=== PATIENT | female | born 1980 | race Caucasian/White ===

== ENCOUNTER 2019-04-03 15:03 | Inpatient (IN) ==
[2019-04-03] MEDS ORDERED: DIAZEPAM 5 MG/ML INJ 10ML VIAL IV STA ×2 (16:18→19:28)
[2019-04-03] MEDS ORDERED: ASCORBIC ACID 1,500 MG, THIAMINE HCL 100 MG in 0.9 % SODIUM CHLORIDE 100 ML IV STA (16:18)
[2019-04-03] MEDS ORDERED: FOLIC ACID 1 MG TAB PO STA (16:18)
--- NOTE | 2019-04-03 17:01 | XRay Report ---
XR chest 1V portable CLINICAL HISTORY: weakness COMPARISON STUDY: No previous studies for comparison. FINDINGS: Lung volumes are normal. Lungs are clear. There is no pneumothorax or pleural effusion. Car diac size is normal. Mediastinal contours are normal. There are suspected bilateral breast implants. There is an equivocal minimally displaced acute lateral right rib fracture. IMPRESSION: No pneumothorax. Possible acute minimally displaced lateral right rib fracture. Electronically signed by: Pedro Lucero M.D. 04/03/2019 5:00 PM
[2019-04-03 17:11] LABS: INR 1.7 (0.9-1.1); Prothrombin Time 16.7 Seconds (9.0-12.0)
[2019-04-03 17:15] LABS: Appearance Urine Clear (Clear); Blood Urine 1+ (Negative); Color Urine Amber; Glucose Urine UA Trace (Negative); Ketones Urine 2+ (Negative); Leukocyte Esterase Urine Negative (Negative); Nitrite Urine Negative (Negative); Specific Gravity Urine 1.015 (1.000-1.030); Urobilinogen Urine Positive (Negative); pH Urine 8.5 (4.5-7.5)
[2019-04-03 17:25] LABS: Alanine Aminotransferase 47 U/L (12-78); Albumin Level 3.1 gm/dl (3.4-5.0); Aspartate Aminotransferase 185 U/L (15-37); BUN Creatinine Ratio 15.3 (10-20); Blood Urea Nitrogen 5 mg/dl (7-18); Calcium 7.8 mg/dl (8.5-10.1); Carbon Dioxide 22 mmol/L (21-32); Chloride 106 mmol/L (98-107); Creatinine Clr Calc Pharmacy 243.9 ml/min; Est GFR (African American) > 150.0; Est GFR (Non-African American) 141.8; Glucose 88 mg/dl (70-99); Magnesium 1.4 mg/dl (1.8-2.4); Potassium 3.5 mmol/L (3.5-5.1); Sodium 138 mmol/L (136-145)
[2019-04-03 17:35] LABS: Albumin Globulin Ratio 0.6 (0.9-2); Alkaline Phosphatase 77 U/L (45-117); Bilirubin,Total 6.8 mg/dl (0.2-1); Creatine Kinase 840 U/L (26-192); Phosphorus 2.8 mg/dl (2.5-4.9); Total Protein 8.1 gm/dl (6.4-8.2); Troponin I < 0.015 ng/ml (0-0.045)
[2019-04-03 17:40] LABS: Bilirubin Urine 2+ (Negative); Hematocrit (blood only) 28.8 % (37-47); Mean Corpuscular Hemoglobin 34.6 pg (25-34); Mean Corpuscular Hgb Conc 34.7 g/dL (32-36); Mean Corpuscular Volume 99.7 fL (80-100); Platelet Count 21 K/uL (130-400); RDW Coefficient of Variation 13.7 % (11.5-14.5); RDW Standard Deviation 49.6 fL (36.4-46.3); Red Blood Count 2.89 M/uL (4.2-5.4); White Blood Count 3.49 K/uL (4.8-10.8)
[2019-04-03 17:41] LABS: Basophils # (auto) 0.04 K/uL (0-0.2); Basophils % (auto) 1.1 %; Eosinophils # (auto) 0.04 K/uL (0-0.5); Eosinophils % (auto) 1.1 %; Ictotest Urine Positive (Negative); Lymphocytes # (auto) 0.66 K/uL (1.2-3.4); Lymphocytes % (auto) 18.9 %; Monocytes # (auto) 0.31 K/uL (0.11-0.59); Monocytes % (auto) 8.9 %; Neutrophils # (auto) 2.44 K/uL (1.4-6.5); Platelet Estimate Decreased (Normal); Protein Urine Negative (Negative)
[2019-04-03 17:55] LABS: Epithelial Cell Urine >30 /lpf (0-5); Renal Epithelial Cells Urine 0-5 /lpf (0-5)
[2019-04-03 17:56] LABS: RBC Urine 0-4 /hpf (0-4)
[2019-04-03 17:57] LABS: Bacteria Urine 2+ (Negative); Mucus Urine Present (None Prsent)
[2019-04-03] MEDS ORDERED: IOVERSOL 100ml IV PRN (18:12)
--- NOTE | 2019-04-03 18:23 | CT Scan Report ---
CT OF THE HEAD WITHOUT CONTRAST CLINICAL HISTORY: Fall. COMPARISON STUDY: No previous studies for comparison. TECHNIQUE: Helical axial images of the head were obtained without IV contrast. Automated exposure con trol was utilized for the study. A dose lowering technique was utilized adhering to the principles o f ALARA. FINDINGS: No acute intracranial hemorrhage, midline shift or mass effect is present. The ventricular system is unremarkable. The basilar cisterns are patent. No extra-axial collections are present. Ther e are no findings to suggest acute dural sinus thrombosis or acute territorial infarct. No significan t calvarial abnormalities are present. Visualized portions of the sinuses and mastoid air cells are c lear. IMPRESSION: 1. No acute intracranial findings. 2. No calvarial fracture. Electronically signed by: Pedro Lucero M.D. 04/03/2019 6:18 PM
--- NOTE | 2019-04-03 18:27 | CT Scan Report ---
CT OF THE CERVICAL SPINE WITHOUT CONTRAST CLINICAL HISTORY: Fall. COMPARISON STUDY: No previous studies for comparison. TECHNIQUE: Helical axial images of the cervical spine were obtained without IV contrast. Sagittal a nd coronal reconstructions were viewed. Automated exposure control was utilized for the study. A do se lowering technique was utilized adhering to the principles of ALARA. FINDINGS: Reversal of the normal cervical lordosis is noted. The craniocervical junction is intact. F acet joints are intact. There is no acute fracture. There is no prevertebral edema. Paravertebral sof t tissues are unremarkable by CT. IMPRESSION: No acute cervical spine fracture or subluxation. Electronically signed by: Pedro Lucero M.D. 04/03/2019 6:26 PM
--- NOTE | 2019-04-03 18:31 | CT Scan Report ---
CT chest w con CLINICAL HISTORY: 38 years-old Female presenting with fall, R chest wall bruising. TECHNIQUE: Multidetector CT imaging of the chest was performed after the administration of intravenou s contrast. IV contrast: 93 mL of Optiray 320. One or more dose lowering techniques were used consist ent with the principles of ALARA (as low as reasonably achievable), including automatic exposure cont rol, mA or kV adjustment to individual patient size, and/or use of iterative reconstruction. COMPARISON: Chest x-ray from earlier today. CT DOSE (mGy.cm): The estimated cumulative dose is 1855.98. FINDINGS: Signing Teacher topogram: Unremarkable. Soft tissues: Normal thyroid. Bilateral subglandular breast implants. Intracapsular rupture suspected on the right. There is also extracapsular rupture evident along the inferior aspect of the right dhruv ast implant. Surrounding infiltrative changes within the inferior right breast and skin thickening. N o focal hematoma is evident. No axillary, supraclavicular, mediastinal, or hilar lymphadenopathy. Nor mal aorta. Normal heart size. No pericardial or pleural effusion. Perisplenic, perigastric, gastroeso phageal, and periumbilical varices. Lungs and airways: No pneumothorax. Central airways patent. Pulmonary arteries are not significantly enlarged relative to adjacent bronchi. No interlobular septal thickening. Minimal dependent changes l ikely atelectasis. Musculoskeletal: Normal osseous structures. IMPRESSION: 1. Acute appearing right subglandular breast implant intracapsular and extracapsular rupture. 2. Right inferior breast contusion. No hematoma. 3. No other evidence of acute intrathoracic pathology. 4. Significant upper abdominal varices consistent with portal hypertension. Electronically signed by: Rubio Pacheco M.D. 04/03/2019 6:30 PM
--- NOTE | 2019-04-03 18:38 | CT Scan Report ---
CT OF THE ABDOMEN AND PELVIS WITH CONTRAST CLINICAL HISTORY: falls, liver disease COMPARISON STUDY: None. TECHNIQUE: Following IV administration of 93 mL of Optiray-320, axial images of the abdomen and pelvi s were obtained from the lung bases to the proximal femurs. Images were reviewed in the axial, sagitt al, and coronal planes. IV contrast was administered without complication. Automated exposure contro l was utilized for the study. A dose lowering technique was utilized adhering to the principles of A FAVIOLA. FINDINGS: Please note that the chest CT will be reported separately. No hemoperitoneum or pneumoperit oneum is noted. The liver is cirrhotic with nodularity of the liver surface. There is no evidence for traumatic injury to the liver, spleen, adrenal glands, kidneys or pancreas. Spleen is moderately enl arged. Extensive varices within the abdomen or pelvis are noted. There are gallstones within the gall bladder. There is mild gallbladder wall thickening with possible trace pericholecystic fluid. There i s no evidence for a bowel obstruction. Note is made of a 7.5 x 5.2 cm lobulated density within the le ft hemipelvis. This is adjacent to the uterus. This appears to be separate from the left ovary. No ac heraclio lumbar spine or pelvic fracture is identified. IMPRESSION: 1. No acute traumatic findings within the abdomen or pelvis. 2. Cirrhosis with sequela of portal hypertension including extensive varices formation and moderate s plenomegaly. 3. 7.5 x 5.2 cm lobulated density within the left hemipelvis which is adjacent to the uterus. This fa vors a uterine fibroid or adjacent fibroids. 4. Cholelithiasis with gallbladder wall thickening, a nonspecific finding in the setting of cirrhosis . Electronically signed by: Pedro Lucero M.D. 04/03/2019 6:37 PM
--- NOTE | 2019-04-03 19:49 | Emergency Department Note ---
Entered by Flaquita Ortiz acting as a scribe for History of Present Illness General Chief complaint: Abnormal Labs/Diagnostic Testing Stated complaint: DETOX REQUEST, ABNORMAL BLOOD WORK Source: patient History of Present Illness Provider complaint: Bruising Onset (ago): week(s) 1 Location: upper extremity Maximum Pain Intensity: 2 Relieved By: + none Exacerbated By: + movement Associated symptoms: + nausea/vomiting (Positive nausea. Negative vomiting.), + shortness of breath and + other (Hallucinations, difficulty swallowing, RUQ pain); no headaches and no seizure The patient is a 38 year old female who presents to the Emergency Room with complaints of upper extremity bruising that began a week ago after a fall. The patient reports she was drunk and fell down her basement stairs and hit the washing machine. The patient states she was admitted to [facility] rehab facility for alcohol abuse and had a fall yesterday and was determined to be a bleeding risk due to a low platelet count. The patient states the pain is exacerbated by movement and not relieved by anything. The patient reports experiencing nausea and shortness of breath but denies any vomiting. Additionally, she mentioned having experienced hallucinations while at rehab. The patient also reports having RUQ pain and a lump and difficulty swallowing. The patient denies any headaches or seizures. The patient mentioned that her last drink of alcohol was on Saturday. The patient states she has a history of hemochromatosis and cellulitis in an infected breast implant. Home Medications Home Medications Medication Instructions Recorded Confirmed Type No Known Home Medications 04/03/19 04/03/19 History Allergies Allergy/AdvReac Type Severity Reaction Status Date / Time cephalexin Allergy Swelling Verified 04/03/19 15:50 of Lip/Tongue/Throat Penicillins Allergy Hives Verified 04/03/19 15:50 Past Med/Surg History Medical History Cellulitis Hemochromatosis Family History Other No pertinent family history in first degree relatives Social History Preferred Language: Greenlandic Communication Ability: Effective Coupon Clerk Required: No Beliefs That Will Affect Care: None Current Living Situation: Rehab Current Living Situation Comment: [facility] Other Information That Helps Us Care for You: No Feels Safe at Home: Yes Safety Concerns: Feels Safe At This Time Smoking Status: Light tobacco smoker Tobacco Type: cigarettes ; Do You Dip or Chew Tobacco: No ; Second Hand Exposure: Yes (Home.) ; Tobacco Cessation Education Requested by Patient: No (Refuses.) Hx Alcohol Use: Yes Alcohol type: wine Hx Substance Use: Yes substance use type: marijuana Last Used Substance: Days (ago) Review of Systems See HPI for pertinent positives & negatives. and A total of 10 systems reviewed and were otherwise negative Physical Exam Vital Signs Vital Signs - 24 hr 04/03/19 15:07 04/03/19 16:43 04/03/19 16:54 Temperature 37.3 C Temperature Source Oral Sepsis Recent Fever Within 48 Hours No Sepsis New/Unexplained Change in Mental Status No Sepsis Action Taken by Nursing No Action Required Pulse Rate 104 H Pulse Rate [Left Finger] 96 H Pulse Rate from SpO2 Sensor Pulse Rhythm Regular Pulse Strength Normal Respiratory Rate 20 16 Respiratory Effort / Characteristics Non-Labored Spontaneous Respiratory Depth Normal Respiratory Pattern Regular Blood Pressure 128/79 Blood Pressure [Left Arm] 152/88 H Blood Pressure Mean 95 Blood Pressure Mean [Left Arm] 109 Blood Pressure Position Sitting Pulse Oximetry 98 98 Oxygen Delivery Method Room Air Room Air Room Air 04/03/19 17:50 04/03/19 18:39 04/03/19 19:00 Temperature Temperature Source Sepsis Recent Fever Within 48 Hours Sepsis New/Unexplained Change in Mental Status Sepsis Action Taken by Nursing Pulse Rate 88 Pulse Rate [Left Finger] 92 H 83 Pulse Rate from SpO2 Sensor 87 Pulse Rhythm Pulse Strength Respiratory Rate 18 16 22 Respiratory Effort / Characteristics Respiratory Depth Respiratory Pattern Blood Pressure 160/87 H Blood Pressure [Left Arm] 155/92 H 168/91 H Blood Pressure Mean 111 Blood Pressure Mean [Left Arm] 113 116 Blood Pressure Position Pulse Oximetry 98 98 98 Oxygen Delivery Method Room Air Room Air 04/03/19 19:30 04/03/19 20:00 04/03/19 20:30 Temperature Temperature Source Sepsis Recent Fever Within 48 Hours Sepsis New/Unexplained Change in Mental Status Sepsis Action Taken by Nursing Pulse Rate 88 88 97 H Pulse Rate [Left Finger] Pulse Rate from SpO2 Sensor 92 H Pulse Rhythm Pulse Strength Respiratory Rate 18 24 24 Respiratory Effort / Characteristics Respiratory Depth Respiratory Pattern Blood Pressure 139/84 153/97 H 147/87 H Blood Pressure [Left Arm] Blood Pressure Mean 102 115 107 Blood Pressure Mean [Left Arm] Blood Pressure Position Pulse Oximetry 98 97 96 Oxygen Delivery Method Room Air Room Air Room Air 04/03/19 21:00 Temperature Temperature Source Sepsis Recent Fever Within 48 Hours Sepsis New/Unexplained Change in Mental Status Sepsis Action Taken by Nursing Pulse Rate 93 H Pulse Rate [Left Finger] Pulse Rate from SpO2 Sensor Pulse Rhythm Pulse Strength Respiratory Rate 18 Respiratory Effort / Characteristics Respiratory Depth Respiratory Pattern Blood Pressure 166/86 H Blood Pressure [Left Arm] Blood Pressure Mean 112 Blood Pressure Mean [Left Arm] Blood Pressure Position Pulse Oximetry 98 Oxygen Delivery Method Room Air GENERAL: Awake, alert, Tremulous. Scattered bruising noted. HENT: Normocephalic. Oropharynx unremarkable. 3cm chin contusion. Healing abrasion on lower lip. EYES: Normal conjunctiva. Scleral icterus noted. NECK: Supple. No nuchal rigidity. RESPIRATORY: Clear to auscultation. No wheezes. Normal respiratory effort. CARDIAC: Normal rate. Normal rhythm. Extremities warm and well perfused. GI: Soft, non-distended. No rebound or guarding. No masses. RECTAL: Deferred. MUSCULOSKELETAL: Atraumatic. Slight right lower chest wall tenderness with a few right lower subq nodules noted.. No significant erythema with RN paint roller cover machine setter present. No significant bony tenderness of extremities. There is no CVA tenderness to palpation. LOWER EXTREMITIES: Calves are equal size bilaterally and non-tender. NEURO: Normal sensorium. No sensory or motor deficits noted. No facial droop. SKIN: Warm and dry. No jaundice noted. Scattered contusions of various ages on right and left (L>R) upper extremities as well as face. Course 1605: Past medical records reviewed. The patient was evaluated in room C03. A complete history and physical exam was performed. 1937: I spoke with Dr. Braun about the patient's case and he will accept the patient for further evaluation. Administered Medications Discontinued Medications Diazepam (Valium) 5 mg IV NOW STA Stop: 04/03/19 16:19 Last Admin: 04/03/19 17:46 Dose: 5 mg Documented by: [id number] Diazepam (Valium) 10 mg IV NOW STA Stop: 04/03/19 19:29 Last Admin: 04/03/19 19:44 Dose: 10 mg Documented by: [id number] Folic Acid (Folvite) 1 mg PO ONE STA Stop: 04/03/19 16:19 Last Admin: 04/03/19 17:46 Dose: 1 mg Documented by: [id number] Ascorbic Acid 1,500 mg/Thiamine HCl 100 mg/ Sodium Chloride 104 mls @ 207 mls/hr IV ONE STA Stop: 04/03/19 16:48 Last Infusion: 04/03/19 18:15 Dose: 0 mls/hr Documented by: [id number] Admin: 04/03/19 17:46 Dose: 207 mls/hr Documented by: [id number] Ioversol (Optiray 320 100ml) 93 ml IV ONCE PRN PRN Reason: Interaction Checking Stop: 04/07/19 18:11 Last Admin: 04/03/19 18:12 Dose: 93 ml Documented by: [id number] Medical Decision Making Differential Diagnosis Etiologies such as biliary colic, cholecystitis, hepatitis, perihepatitis, pancreatitis, cardiac disease, pancreatitis, gastritis, peptic ulcer disease, appendicitis, ovarian cyst, ovarian torsion, ectopic , pelvic inflammatory disease, cystitis, diverticulitis, mesenteric ischemia, inflammatory bowel disease, ileus, bowel obstruction, aortic pathology, shingles, fracture, cervical/vertebral injury, dislocation, intra-abdominal process, pneumothorax, intrathoracic trauma, intracranial injury, soft tissue injury, neurologic process, alcohol intoxication, toxicological, infection, hypoglycemia, electrolyte abnormalities, cardiac sources, intracerebral event, neurologic, as well as others were entertained. Medical Records Attestation: I reviewed the patient's medical records. Home Medications Current Medication List: was personally reviewed by me Laboratory Data Attestation: I reviewed the patient's lab results. Result diagrams: 04/03/19 16:51 04/03/19 16:51 Lab Results 04/03/19 04/03/19 04/03/19 Range/Units 16:51 16:51 16:51 WBC 3.49 L (4.8-10.8) K/uL RBC 2.89 L (4.2-5.4) M/uL Hgb 10.0 L (12.0-16.0) g/dL Hct 28.8 L (37-47) % MCV 99.7 (80-100) fL MCH 34.6 H (25-34) pg MCHC 34.7 (32-36) g/dL RDW Std Deviation 49.6 H (36.4-46.3) fL RDW Coeff of Margarette 13.7 (11.5-14.5) % Plt Count 21 L* (130-400) K/uL MPV 11.0 H (7.4-10.4) fL Immature Gran % (Auto) 0.0 % Neut % (Auto) 70.0 % Lymph % (Auto) 18.9 % Wilcox % (Auto) 8.9 % Eos % (Auto) 1.1 % Baso % (Auto) 1.1 % Immature Gran # (Auto) 0.00 (0.00-0.02) K/uL Neut # (Auto) 2.44 (1.4-6.5) K/uL Lymph # (Auto) 0.66 L (1.2-3.4) K/uL Wilcox # (Auto) 0.31 (0.11-0.59) K/uL Eos # (Auto) 0.04 (0-0.5) K/uL Baso # (Auto) 0.04 (0-0.2) K/uL Platelet Estimate Decreased L (Normal) PT 16.7 H (9.0-12.0) Seconds INR 1.7 H (0.9-1.1) Sodium 138 (136-145) mmol/L Potassium 3.5 (3.5-5.1) mmol/L Chloride 106 (98-107) mmol/L Carbon Dioxide 22 (21-32) mmol/L Anion Gap 10.0 (3-11) BUN 5 L (7-18) mg/dl Creatinine 0.33 L (0.6-1.2) mg/dl Est Cr Clr Drug Dosing 243.9 ml/min Est GFR ( Amer) > 150.0 Est GFR (Non-Af Amer) 141.8 BUN/Creatinine Ratio 15.3 (10-20) Glucose 88 (70-99) mg/dl Calcium 7.8 L (8.5-10.1) mg/dl Phosphorus 2.8 (2.5-4.9) mg/dl Magnesium 1.4 L (1.8-2.4) mg/dl Total Bilirubin 6.8 H (0.2-1) mg/dl AST 185 H (15-37) U/L ALT 47 (12-78) U/L Alkaline Phosphatase 77 (45-117) U/L Total Creatine Kinase 840 H (26-192) U/L Troponin I < 0.015 (0-0.045) ng/ml Total Protein 8.1 (6.4-8.2) gm/dl Albumin 3.1 L (3.4-5.0) gm/dl Globulin 5.0 H (2.5-4.0) gm/dl Albumin/Globulin Ratio 0.6 L (0.9-2) TSH 2.550 (0.300-4.500) uIu/ml Urine Color Urine Appearance (Clear) Urine pH (4.5-7.5) Ur Specific Lyons (1.000-1.030) Urine Protein (Negative) Urine Glucose (UA) (Negative) Urine Ketones (Negative) Urine Blood (Negative) Urine Nitrite (Negative) Urine Bilirubin (Negative) Urine Urobilinogen (Negative) Ur Leukocyte Esterase (Negative) Urine RBC (0-4) /hpf Urine WBC (0-5) /hpf Ur Epithelial Cells (0-5) /lpf Ur Renal Epithelial Cell (0-5) /lpf Urine Bacteria (Negative) Urine Mucus (None Prsent) Blood Type Antibody Screen 04/03/19 04/03/19 Range/Units 16:51 17:15 WBC (4.8-10.8) K/uL RBC (4.2-5.4) M/uL Hgb (12.0-16.0) g/dL Hct (37-47) % MCV (80-100) fL MCH (25-34) pg MCHC (32-36) g/dL RDW Std Deviation (36.4-46.3) fL RDW Coeff of Margarette (11.5-14.5) % Plt Count (130-400) K/uL MPV (7.4-10.4) fL Immature Gran % (Auto) % Neut % (Auto) % Lymph % (Auto) % Wilcox % (Auto) % Eos % (Auto) % Baso % (Auto) % Immature Gran # (Auto) (0.00-0.02) K/uL Neut # (Auto) (1.4-6.5) K/uL Lymph # (Auto) (1.2-3.4) K/uL Wilcox # (Auto) (0.11-0.59) K/uL Eos # (Auto) (0-0.5) K/uL Baso # (Auto) (0-0.2) K/uL Platelet Estimate (Normal) PT (9.0-12.0) Seconds INR (0.9-1.1) Sodium (136-145) mmol/L Potassium (3.5-5.1) mmol/L Chloride (98-107) mmol/L Carbon Dioxide (21-32) mmol/L Anion Gap (3-11) BUN (7-18) mg/dl Creatinine (0.6-1.2) mg/dl Est Cr Clr Drug Dosing ml/min Est GFR ( Amer) Est GFR (Non-Af Amer) BUN/Creatinine Ratio (10-20) Glucose (70-99) mg/dl Calcium (8.5-10.1) mg/dl Phosphorus (2.5-4.9) mg/dl Magnesium (1.8-2.4) mg/dl Total Bilirubin (0.2-1) mg/dl AST (15-37) U/L ALT (12-78) U/L Alkaline Phosphatase (45-117) U/L Total Creatine Kinase (26-192) U/L Troponin I (0-0.045) ng/ml Total Protein (6.4-8.2) gm/dl Albumin (3.4-5.0) gm/dl Globulin (2.5-4.0) gm/dl Albumin/Globulin Ratio (0.9-2) TSH (0.300-4.500) uIu/ml Urine Color Veronique Urine Appearance Clear (Clear) Urine pH 8.5 H (4.5-7.5) Ur Specific Lyons 1.015 (1.000-1.030) Urine Protein Negative (Negative) Urine Glucose (UA) Trace H (Negative) Urine Ketones 2+ H (Negative) Urine Blood 1+ H (Negative) Urine Nitrite Negative (Negative) Urine Bilirubin 2+ H (Negative) Urine Urobilinogen Positive H (Negative) Ur Leukocyte Esterase Negative (Negative) Urine RBC 0-4 (0-4) /hpf Urine WBC 5-10 H (0-5) /hpf Ur Epithelial Cells >30 H (0-5) /lpf Ur Renal Epithelial Cell 0-5 (0-5) /lpf Urine Bacteria 2+ H (Negative) Urine Mucus Present A (None Prsent) Blood Type A Positive Antibody Screen NEGATIVE Imaging Data Radiologist's Impression: Radiology results as stated below per my review and the radiologist's interpretation: XR chest 1V portable CLINICAL HISTORY: weakness COMPARISON STUDY: No previous studies for comparison. FINDINGS: Lung volumes are normal. Lungs are clear. There is no pneumothorax or pleural effusion. Cardiac size is normal. Mediastinal contours are normal. There are suspected bilateral breast implants. There is an equivocal minimally displaced acute lateral right rib fracture. IMPRESSION: No pneumothorax. Possible acute minimally displaced lateral right rib fracture. Electronically signed by: Pedro Lucero M.D. 04/03/2019 5:[address] OF THE CERVICAL SPINE WITHOUT CONTRAST CLINICAL HISTORY: Fall. COMPARISON STUDY: No previous studies for comparison. TECHNIQUE: Helical axial images of the cervical spine were obtained without IV contrast. Sagittal and coronal reconstructions were viewed. Automated exposure control was utilized for the study. A dose lowering technique was utilized adhering to the principles of ALARA. FINDINGS: Reversal of the normal cervical lordosis is noted. The craniocervical junction is intact. Facet joints are intact. There is no acute fracture. There is no prevertebral edema. Paravertebral soft tissues are unremarkable by CT. IMPRESSION: No acute cervical spine fracture or subluxation. Electronically signed by: Pedro Lucero M.D. 04/03/2019 6:[address] OF THE ABDOMEN AND PELVIS WITH CONTRAST CLINICAL HISTORY: falls, liver disease COMPARISON STUDY: None. TECHNIQUE: Following IV administration of 93 mL of Optiray-320, axial images of the abdomen and pelvis were obtained from the lung bases to the proximal femurs. Images were reviewed in the axial, sagittal, and coronal planes. IV contrast was administered without complication. Automated exposure control was utilized for the study. A dose lowering technique was utilized adhering to the principles of ALARA. FINDINGS: Please note that the chest CT will be reported separately. No hemoperitoneum or pneumoperitoneum is noted. The liver is cirrhotic with nodularity of the liver surface. There is no evidence for traumatic injury to the liver, spleen, adrenal glands, kidneys or pancreas. Spleen is moderately enlarged. Extensive varices within the abdomen or pelvis are noted. There are gallstones within the gallbladder. There is mild gallbladder wall thickening with possible trace pericholecystic fluid. There is no evidence for a bowel obstruction. Note is made of a 7.5 x 5.2 cm lobulated density within the left hemipelvis. This is adjacent to the uterus. This appears to be separate from the left ovary. No acute lumbar spine or pelvic fracture is identified. IMPRESSION: 1. No acute traumatic findings within the abdomen or pelvis. 2. Cirrhosis with sequela of portal hypertension including extensive varices formation and moderate splenomegaly. 3. 7.5 x 5.2 cm lobulated density within the left hemipelvis which is adjacent to the uterus. This favors a uterine fibroid or adjacent fibroids. 4. Cholelithiasis with gallbladder wall thickening, a nonspecific finding in the setting of cirrhosis. Electronically signed by: Pedro Lucero M.D. 04/03/2019 6:[address] chest w con CLINICAL HISTORY: 38 years-old Female presenting with fall, R chest wall bruising. TECHNIQUE: Multidetector CT imaging of the chest was performed after the administration of intravenous contrast. IV contrast: 93 mL of Optiray 320. One or more dose lowering techniques were used consistent with the principles of ALARA (as low as reasonably achievable), including automatic exposure control, mA or kV adjustment to individual patient size, and/or use of iterative reconstruction. COMPARISON: Chest x-ray from earlier today. CT DOSE (mGy.cm): The estimated cumulative dose is 1855.98. FINDINGS: School Psychologist topogram: Unremarkable. Soft tissues: Normal thyroid. Bilateral subglandular breast implants. Intracapsular rupture suspected on the right. There is also extracapsular rupture evident along the inferior aspect of the right breast implant. Surrounding infiltrative changes within the inferior right breast and skin thickening. No focal hematoma is evident. No axillary, supraclavicular, mediastinal, or hilar lymphadenopathy. Normal aorta. Normal heart size. No pericardial or pleural effusion. Perisplenic, perigastric, gastroesophageal, and periumbilical varices. Lungs and airways: No pneumothorax. Central airways patent. Pulmonary arteries are not significantly enlarged relative to adjacent bronchi. No interlobular septal thickening. Minimal dependent changes likely atelectasis. Musculoskeletal: Normal osseous structures. IMPRESSION: 1. Acute appearing right subglandular breast implant intracapsular and extracapsular rupture. 2. Right inferior breast contusion. No hematoma. 3. No other evidence of acute intrathoracic pathology. 4. Significant upper abdominal varices consistent with portal hypertension. Electronically signed by: Rubio Pacheco M.D. 04/03/2019 6:[address] OF THE HEAD WITHOUT CONTRAST CLINICAL HISTORY: Fall. COMPARISON STUDY: No previous studies for comparison. TECHNIQUE: Helical axial images of the head were obtained without IV contrast. Automated exposure control was utilized for the study. A dose lowering technique was utilized adhering to the principles of ALARA. FINDINGS: No acute intracranial hemorrhage, midline shift or mass effect is present. The ventricular system is unremarkable. The basilar cisterns are patent. No extra-axial collections are present. There are no findings to suggest acute dural sinus thrombosis or acute territorial infarct. No significant calvarial abnormalities are present. Visualized portions of the sinuses and mastoid air cells are clear. IMPRESSION: 1. No acute intracranial findings. 2. No calvarial fracture. Electronically signed by: Pedro Lucero M.D. 04/03/2019 6:18 PM ECG Data Attestation: I personally reviewed and interpreted this ECG as follows: Indication: other (Ecchymosis ) Rate (beats per minute): 72 Rhythm: normal sinus Findings: + prolonged QT; no ST depression and no ST elevation Blood Pressure Blood Pressure Findings: Elevated blood pressure Blood Pressure Disposition: Referred to patients primary care provider Head Trauma GCS Score: 15 MDM Narrative Patient is a 38-year-old female presenting today from [place] [id number] to concerns for withdrawal and low platelet count. States that her platelets are low when she is covered in bruises. Relates history of liver disease and hemoc hromatosis. Also a history of esophageal varices and alcohol abuse. She endorses significant nauseousness and is tremorous. States that she is been at rehab for 2 days since falling down the stairs when she was intoxicated. Also endorses a history of Xanax usage states she has not had any since Saturday. Evidently blood work showed a thrombocytopenia with a platelet count of 32 today. Also endorsing some right breast tenderness and did not complete the entire course of antibiotics for infection here due to prior breast implant cellulitis. Patient not noted to be febrile or significant hypertensive while here. Is slightly tachycardic with scleral icterus and tremors. States that she did have another fall earlier today at [facility] and she did endorse some hallucinations. Did give her some Valium initially to help with any possible withdrawal she states her last alcohol intake and Xanax and takes was 2 days ago. History of liver disease. Endorses little pain in her right breast but no significant erythema noted. Some subcutaneous nodules noted in this area. Given the fall and bruising of various ages and lack of previous evaluation according to the patient CT the head cervical spine and chest and abdomen pelvis were completed. Endorses little pain in the right lower chest wall and right upper quadrant area. And CT scan completed and repeat laboratory studies o btained. Concern the patient is expensing alcohol withdrawal symptoms. Denies any current melena, hematochezia, or hematemesis although does endorse a history of varices in the past. From [place] and follows with doctors there. Patient does have evidence of elevated bilirubin likely related to her liver disease. Platelets are lower than previously at 21. Bilirubin elevated at 6.8 the patient states is actually bit better for her. Likely no significant traumatic injury behind possibly a ruptured right breast implant is noted. This likely any other pain I doubt a significant infectious source at this site this time. Still having symptoms consistent with some alcohol withdrawal and given additional Valium here. Given the thrombocytopenia underlying liver disease & the report of hallucinations last night as well as some benzodiazepine use in the past week she is at high risk for alcohol withdrawal discussed with the patient wished to be managed as an inpatient here. The hospitalist was contacted. Impression & Plan Alcohol withdrawal, Cirrhosis, Elevated bilirubin, Thrombocytopenia Discharge Plan Visit Data *Final* Discharge Date/Time: 04/03/19 21:56 Chief Complaint: Abnormal Labs/Diagnostic Testing Stated Complaint: DETOX REQUEST, ABNORMAL BLOOD WORK ED Provider: Ziggy Pérez Discharge Problem: Alcohol withdrawal, Cirrhosis, Elevated bilirubin, Thrombocytopenia Patient Disposition: Admitted As Inpatient Discharge Instructions Interventions: ED Discharge Assessment Last Done: 04/03/19 21:56 The anikaibe's documentation has been prepared under my direction and personally reviewed by me in its entirety. I confirm that the note above accurately reflects all work, treatment, procedures, and medical decision making performed by me.
--- NOTE | 2019-04-03 21:24 | History & Physical Report ---
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. Alcohol Withdrawal/Hx of alcohol abuse -Pt with approximately 8 year Hx of alcohol abuse, with 2 previous detox periods and periods of abstinence over the years. -Started drinking heavily again in 2018 after stopping for 1-2 years, due to her anxiety and depression per patient. -Parents took her on 04/01/2019 to [facility] in [place] for rehab. -Drinks wine, states 4 bottles at night at her heaviest; last drink the night before entering rehab. -was not on meds at facility, sent to hospital to detox -currently shaky and with sweats, increased BP with borderline tachycardia; s/p 15mg of diazepam in ED -will start on AWSS protocol with Ativan -daily banana bag with thiamine and folate -folate level with AM labs -case management consult for discharge planning; she states after detox she would like to return to rehab facility. However lives at home with who she and family present also describe as an alcoholic. -will continue to monitor Benzodiazepine abuse -Pt states she was on prescribed Xanax 1mg for anxiety and depression -Has been taking 0.5mg a day for the last 7 years, adamant that she does not using it together with alcohol. -as above with AWSS protocol with Ativan for detox UTI -pt with dysuria of 3 days duration -UA which shows blood, bacteria, bilirubin, mucus and epithelial cells >30 -Epithelial cells suggest contamination but given pt's symptoms will treat as UTI -Pt with allergy to a cephalosporin, cirrhosis of liver--will treat with L evaquin -continue to monitor symptoms Elevated Creatine Kinase/?Acute Rhabdomyolysis -Pt with Hx of alcoholic falls -CK elevated to 840 on admission -will start on NSS@125 -will trend with AM labs Pancytopenia -Pt with leukopenia, anemia and thrombocytopenia. -likely due to effects of alcohol -pt with no active signs of bleeding though multiple bruises from falls; can consider a platelet transfusion given level of 21,000 if actively bleeding (bleeding at IV sites, hematemesis, hemoptysis, etc) -MCV of 99.7 for anemia; will order a folate and B12 level with AM labs -continue to trend CBC Hx of Liver Cirrhosis -Abd/Pelvis on 04/03 showed cirrhosis of liver with nodularity, varices and moderate splenomegaly. -Current MELD score of 20 (Na 138, Cr 0.33, Bili 6.8, INR 1.7) -Of note YSX=[id number], ALT and alk phos normal -Pt states she follows with GI in [place], Dr. Romero. -was on nadolol for her varices which she stopped taking about a month ago. Can consider restarting here. -of note pt with Hx of hemochromatosis; iron level ordered. -GI consult placed -will continue to trend CMP, PT/INR with AM labs Hx of Recurrent falls -Pt with multiple bruises secondary to falls that she states started about a month ago -Chest XR with possible acute lateral right rib fracture, chest CT with R inferior breast contusion. -Given chin bruise, Head CT showed no acute fractures of calvarium and cervical spine CT with no fracture or subluxation. -Denies vehemently any Hx of domestic abuse -Has neuropathy in feet and possible component of Wernicke-Korsakoff syndrome -continue banana bag above with thiamine -will order MRI of lumbar spine to look for any other etiologies -can consider PT/OT services Ruptured Breast Implant -Chest CT showing acute intracapsular and extracapsular rupture of right subglandular breast implant. -Per pt she had them inserted on February [address] [place] [address] Regine Miller. -Silicone implants -Of note pt states she had a cellulitis on one of the breasts and was told that she was not a surgical candidate to have them removed given her current health status and lab values. -Outpt followup recommended. Uterine Fibroid -noted on abd/pelvis CT -close outpt/PCP followup strongly recommended. Hx of hemochromatosis -Pt states diagnosed during one of her detox stays at [facility] -close outpt followup recommended. 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. Pt states she was sent over only to undergo detox. Her falls have been happening for the last month or so with the most notable being that she fell down her basement stairs. Has been drinking for the last 7 years due to depression and anxiety. Mostly wine with max of 4 bottles per night. 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 Has quit drinking twice with most recent restart being in 2018. Has also being abusing Xanax during this time, which she was prescribed for anxiety and depression. Cuts her 1mg tab in half and takes 0.5mg. Adamant she does not use it with alcohol. Lives with at home who drinks as well. Parents took her to rehab center, [facility] in [place] for rehab on Saturday. They also live nearby Has been in counseling but stopped after a while. PMHx: Hemochromatosis, Cirrhosis, Depression, Anxiety, Allergies PSH: Bilateral silicone breast implants 2018 Meds: Nadolol Allergies: Cephalexin, penicillin Fam Hx: HLD, Depression, Anxiety, Glioblastoma Social Hx: Former practicing dentist, lives with who also drinks in a 2 story home with 4 stairs to enter the house. Drinks at max 4 bottles of wine per day. ED Course: IV Diazepam 10mg, IV diazepam 5mg, Folic acid, thiamine and ascorbic acid administration. Allergies Allergy/AdvReac Type Severity Reaction Status Date / Time cephalexin Allergy Swelling Verified 04/03/19 15:50 of Lip/Tongue/Throat Penicillins Allergy Hives Verified 04/03/19 15:50 Home Medications Home Medications Medication Instructions Recorded Confirmed Type No Known Home Medications 04/03/19 04/03/19 History Past Med/Surg History Medical History Cellulitis Hemochromatosis Family History Other No pertinent family history in first degree relatives Social History Preferred Language: Greenlandic Communication Ability: Effective Environmental Compliance Officer Required: No Beliefs That Will Affect Care: None Current Living Situation: Rehab Current Living Situation Comment: [facility] Other Information That Helps Us Care for You: No Feels Safe at Home: Yes Safety Concerns: Feels Safe At This Time Smoking Status: Light tobacco smoker Tobacco Type: cigarettes ; Do You Dip or Chew Tobacco: No ; Second Hand Exposure: Yes (Home.) ; Tobacco Cessation E ducation Requested by Patient: No (Refuses.) Hx Alcohol Use: Yes Alcohol type: wine Hx Substance Use: Yes substance use type: marijuana Last Used Substance: Days (ago) Review of Systems Constitutional: + sweats and + weakness; no fever and no chills Eyes: no worsening vision Ear, Nose, Mouth, Throat: + dizziness, + nasal congestion and + post nasal drip; no sore throat Respiratory: no cough and no dyspnea Cardiovascular: no chest pain, no palpitations, no edema and no calf pain Gastrointestinal: no abdominal pain, no nausea, no vomiting, no constipation and no diarrhea/loose stools Genitourinary: + dysuria and + problem reported (orange colored urine); no hematuria Musculoskeletal: + muscle weakness and + body aches Integumentary: + unusual bruising (multiple bruises on chin, knee); no rash Neurologic: + falls, + paresthesia, + headache(s) and + memory loss; no confusion Psychiatric: + depression and + anxiety; no suicidal ideation Endocrine: + fatigue Hematologic / Lymphatic: + easy bruising Physical Exam Constitutional: + ill appearing and + diaphoretic (with tremors) Eyes: + scleral abnormality (icteric/yellowing of eyes) ENMT: external ear and nose normal, oropharynx normal Neck: normal visual inspection Respiratory: normal respiratory effort, lungs clear to auscultation Cardiovascular: RRR, no murmur, no edema Chest (Breasts): Breast: + breast tenderness (pt with tenderness over implants in lateral upper and lower quadrants.) Gastrointestinal (Abdomen): Percussion/Palpation: abdomen soft and + ascites (minimal); abdomen nontender, no guarding and no hepatosplenomegaly (not on exam) Musculoskeletal: Extremities: + abnormal strength (in lower extremities, weake r); + extremities abnormal to inspection (bruising noted on knees and lower extremities) Skin: Trauma: + evidence of skin trauma (pt with multiple bruises in diff stages of healing (face, extremities)) Neurologic: CN's II-XI intact bilaterally and awake; not confused Motor/Sen dewayne: + tremor; no pronator drift and no asterixis Coordination: normal [id number] test and normal [id number] test Psychiatric: Orientation: alert and oriented x 3 Eye Contact: good eye contact Motor Behavior: + tremor Speech: normal rate/rhythm/volume of speech Suicidal Thoughts: denies suicidal thoughts Genitourinary: no CVA tenderness Results & Data Vital Signs (Past 12 Hours) Vital Signs Temp Pulse Pulse Resp BP BP Pulse Ox 04/03/19 20:00 88 24 153/97 H 97 04/03/19 19:30 88 18 139/84 98 04/03/19 19:00 88 22 160/87 H 98 04/03/19 18:39 83 16 168/91 H 98 04/03/19 17:50 92 H 18 155/92 H 98 04/03/19 16:54 96 H 16 152/88 H 98 04/03/19 15:07 37.3 C 104 H 20 128/79 98 Laboratory Results Laboratory Results - last 24 hr 04/03/19 04/03/19 04/03/19 16:51 16:51 16:51 WBC 3.49 L RBC 2.89 L Hgb 10.0 L Hct 28.8 L MCV 99.7 MCH 34.6 H MCHC 34.7 RDW Std Deviation 49.6 H RDW Coeff of Margarette 13.7 Plt Count 21 L* MPV 11.0 H Immature Gran % (Auto) 0.0 Neut % (Auto) 70.0 Lymph % (Auto) 18.9 [place] % (Auto) 8.9 Eos % (Auto) 1.1 Baso % (Auto) 1.1 Immature Gran # (Auto) 0.00 Neut # (Auto) 2.44 Lymph # (Auto) 0.66 L [place] # (Auto) 0.31 Eos # (Auto) 0.04 Baso # (Auto) 0.04 Platelet Estimate Decreased L PT 16.7 H INR 1.7 H Sodium 138 Potassium 3.5 Chloride 106 Carbon Dioxide 22 Anion Gap 10.0 BUN 5 L Creatinine 0.33 L Est Cr Clr Drug Dosing 243.9 Est GFR ( Amer) > 150.0 Est GFR (Non-Af Amer) 141.8 BUN/Creatinine Ratio 15.3 Glucose 88 Calcium 7.8 L Phosphorus 2.8 Magnesium 1.4 L Total Bilirubin 6.8 H AST 185 H ALT 47 Alkaline Phosphatase 77 Total Creatine Kinase 840 H Troponin I < 0.015 Total Protein 8.1 Albumin 3.1 L Globulin 5.0 H Albumin/Globulin Ratio 0.6 L TSH 2.550 Urine Color Urine Appearance Urine pH Ur Specific [place] Urine Protein Urine Glucose (UA) Urine Ketones Urine Blood Urine Nitrite Urine Bilirubin Urine Urobilinogen Ur Leukocyte Esterase Urine RBC Urine WBC Ur Epithelial Cells Ur Renal Epithelial Cell Urine Bacteria Urine Mucus Blood Type Antibody Screen 04/03/19 04/03/19 16:51 17:15 WBC RBC Hgb Hct MCV MCH MCHC RDW Std Deviation RDW Coeff of Margarette Plt Count MPV Immature Gran % (Auto) Neut % (Auto) Lymph % (Auto) [place] % (Auto) Eos % (Auto) Baso % (Auto) Immature Gran # (Auto) Neut # (Auto) Lymph # (Auto) [place] # (Auto) Eos # (Auto) Baso # (Auto) Platelet Estimate PT INR Sodium Potassium Chloride Carbon Dioxide Anion Gap BUN Creatinine Est Cr Clr Drug Dosing Est GFR ( Amer) Est GFR (Non-Af Amer) BUN/Creatinine Ratio Glucose Calcium Phosphorus Magnesium Total Bilirubin AST ALT Alkaline Phosphatase Total Creatine Kinase Troponin I Total Protein Albumin Globulin Albumin/Globulin Ratio TSH Urine Color [place] Urine Appearance Clear Urine pH 8.5 H Ur Specific [place] 1.015 Urine Protein Negative Urine Glucose (UA) Trace H Urine Ketones 2+ H Urine Blood 1+ H Urine Nitrite Negative Urine Bilirubin 2+ H Urine Urobilinogen Positive H Ur Leukocyte Esterase Negative Urine RBC 0-4 Urine WBC 5-10 H Ur Epithelial Cells >30 H Ur Renal Epithelial Cell 0-5 Urine Bacteria 2+ H Urine Mucus Present A Blood Type A Positive Antibody Screen NEGATIVE Medications Administered Home Medications No Known Home Medications 04/03/19 [History Confirmed 04/03/19] Active Medications Ioversol (Optiray 320 100ml) 93 ml IV ONCE PRN PRN Reason: Interaction Checking Stop: 04/07/19 18:11 Last Admin: 04/03/19 18:12 Dose: 93 ml Documented by: Supervising Physician Co-Signing Physician Notes Patient was seen and examined by me personally. I reviewed the chart, the orders and discussed the case in detail with Dr. Mara Stone MD . I read this H&P and agree with its contents to entirety. Resident Activity Tracking Resident Involvement: Resident Care Provided Care Provided: Adult [facility]
[2019-04-03] MEDS ORDERED: ATIVAN IV ALCOHOL WITHDRAWL IV SCH (22:48)
[2019-04-03] MEDS ORDERED: LORazepam 1 MG/2 ML VIAL IV PRN ×2 (22:48)
[2019-04-03] MEDS ORDERED: ONDANSETRON INJ 2 MG/ML 2 ML VIAL IV PRN (23:27)
[2019-04-03] MEDS ORDERED: MULTI-VITAMIN INFUSION 10 ML, THIAMINE HCL 100 MG, FOLIC ACID 1 MG in SODIUM CHLORIDE 0... IV SCH (23:30)
[2019-04-03] MEDS ORDERED: ONDANSETRON INJ 2 MG/ML 2 ML VIAL ONE (23:38)
[2019-04-03] MEDS: LORazepam 3 MG/6 ML VIAL IV PRN (23:55)
[2019-04-04] MEDS: SODIUM CHLORIDE 0.9% 1000ML 1,000 ML IV SCH ×3 (00:01→19:31)
[2019-04-04] MEDS: LEVOFLOXACIN/D5W 250 MG/50 ML BAG IV SCH ×2 (00:32→22:03)
[2019-04-04] MEDS ORDERED: GABAPENTIN 1200MG ALCOHOL WITHDRAWAL LOAD PO STA (00:45)
[2019-04-04] MEDS: LORazepam 3 MG/6 ML VIAL IV PRN (00:55)
[2019-04-04] MEDS ORDERED: GABAPENTIN 600 MG TAB PO STA (01:08)
[2019-04-04] MEDS: LORazepam 2 MG/4 ML VIAL IV PRN ×6 (02:11→22:07)
[2019-04-04 06:04] LABS: INR 1.9 (0.9-1.1); Partial Thromboplastin Ratio 1.3; Partial Thromboplastin Time 36.2 Seconds (21.0-31.0); Prothrombin Time 18.2 Seconds (9.0-12.0)
[2019-04-04 06:14] LABS: Hematocrit (blood only) 26.9 % (37-47); Hemoglobin 9.2 g/dL (12.0-16.0); Mean Corpuscular Hemoglobin 34.5 pg (25-34); Mean Corpuscular Hgb Conc 34.2 g/dL (32-36); Mean Corpuscular Volume 100.7 fL (80-100); Mean Platelet Volume 10.3 fL (7.4-10.4); Platelet Count 25 K/uL (130-400); RDW Coefficient of Variation 13.8 % (11.5-14.5); RDW Standard Deviation 50.6 fL (36.4-46.3); Red Blood Count 2.67 M/uL (4.2-5.4); White Blood Count 4.28 K/uL (4.8-10.8)
[2019-04-04 06:26] LABS: Basophils # (auto) 0.05 K/uL (0-0.2); Basophils % (auto) 1.2 %; Eosinophils # (auto) 0.08 K/uL (0-0.5); Eosinophils % (auto) 1.9 %; Immature Granulocytes # (auto) 0.01 K/uL (0.00-0.02); Immature Granulocytes % (auto) 0.2 %; Lymphocytes # (auto) 0.89 K/uL (1.2-3.4); Lymphocytes % (auto) 20.8 %; Monocytes # (auto) 0.46 K/uL (0.11-0.59); Monocytes % (auto) 10.7 %; Neutrophils # (auto) 2.79 K/uL (1.4-6.5); Neutrophils % (auto) 65.2 %
[2019-04-04 06:29] LABS: Alanine Aminotransferase 38 U/L (12-78); Albumin Globulin Ratio 0.6 (0.9-2); Albumin Level 2.9 gm/dl (3.4-5.0); Alkaline Phosphatase 74 U/L (45-117); Aspartate Aminotransferase 145 U/L (15-37); BUN Creatinine Ratio 13.3 (10-20); Bilirubin,Total 7.2 mg/dl (0.2-1); Blood Urea Nitrogen 6 mg/dl (7-18); Calcium 7.9 mg/dl (8.5-10.1); Carbon Dioxide 23 mmol/L (21-32); Chloride 108 mmol/L (98-107); Creatine Kinase 633 U/L (26-192); Creatinine Clr Calc Pharmacy 191.7 ml/min; Est GFR (African American) > 150.0; Est GFR (Non-African American) 130.9; Globulin 4.6 gm/dl (2.5-4.0); Glucose 94 mg/dl (70-99); Potassium 3.3 mmol/L (3.5-5.1); Sodium 139 mmol/L (136-145); Total Protein 7.5 gm/dl (6.4-8.2)
[2019-04-04 09:17] LABS: Folate (Folic Acid) > 24.00 ng/ml (>5.38); Vitamin B12 836 pg/ml (211-911)
--- NOTE | 2019-04-04 10:37 | Gastrointestinal Consultation ---
Date of Consultation April 04, 2019 Assessment & Plan (1) Cirrhosis: Obtain records from primary GI service at [facility] Continue supportive care Not a transplant candidate at this time due to active alcohol abuse Will need routine screening for HCC and esophageal varices as outpatient, once acute problems resolve. Check Ammonia level now. (2) Alcohol withdrawal: Monitor for signs of alcohol withdrawal. Continue current alcohol withdrawal prophylaxis. Encourage her to proceed with alcohol cessation, may need inpatient rehab Recommend Prednisolone therapy for 30 days due to elevated DF. Continue supportive care. History of Present Illness Reason for Consultation: Alcoholic cirrhosis Attending Physician: Donato Alexander History of Present Illness Iveth Barone is a 38 yo CF who presented to [facility] as a referral from her outpatient rehab center secondary to bruising and abnormal lab studies. She does have a history of alcohol abuse and benzodiazepine abuse, along with a history of anxiety and depression. She has a known history of Cirrhosis, and follows with [facility] as an outpatient. Upon arrival to the ER, she was noted to be pancytopenic, and evidence of cirrhosis on imaging, as well as lab studies. Her Maddrey's Discriminant Function score for alcoholic Hepatitis was elevated, and she was started on Prednisolone therapy and protocol for alcohol withdrawal. At the time I saw the patient, she was extremely lethargic, as she had recently been given a dose of Ativan therapy. She was able to wake up for a few moments. She denied any abdominal pain, nausea, vomiting, hematemesis, melena or hematochezia. Her calculated DF today was 35.7, and her calculated MELD score today was 21. She was unable to answer any further questions, and the remainder of her history was obtained through chart review. Allergies Allergy/AdvReac Type Severity Reaction Status Date / Time cephalexin Allergy Swelling Verified 04/03/19 15:50 of Lip/Tongue/Throat Penicillins Allergy Hives Verified 04/03/19 15:50 Home Medications Home Medications Medication Instructions Recorded Confirmed Type No Known Home Medications 04/03/19 04/03/19 History Patient History Medical History Cellulitis Hemochromatosis Family History Other No pertinent family history in first degree relatives Social History Preferred Language: Bruneian Communication Ability: Effective Mds Manager Required: No Beliefs That Will Affect Care: None Current Living Situation: Rehab Current Living Situation Comment: [facility] Other Information That Helps Us Care for You: No Feels Safe at Home: Yes Safety Concerns: Feels Safe At This Time Smoking Status: Light tobacco smoker Tobacco Type: cigarettes ; Do You Dip or Chew Tobacco: No ; Second Hand Exposure: Yes (Home.) ; Tobacco Cessation Education Requested by Patient: No (Refuses.) Hx Alcohol Use: Yes Alcohol type: wine Hx Substance Use: Yes substance use type: marijuana Last Used Substance: Days (ago) Review of Systems Review of Systems: Unobtainable due to reduced consciousness Patient on Ativan therapy for Alcohol withdrawal symptoms. Physical Exam Constitutional: + lethargic Disheveled Eyes: Scleral icterus Respiratory: normal respiratory effort, lungs clear to auscultation Cardiovascular: RRR, no murmur, no edema Gastrointestinal (Abdomen): Percussion/Palpation: abdomen soft and + hepatosplenomegaly; abdomen nontender Skin: + ecchymosis (Multiple sites including both upper extremities) Psychiatric: Apperance: + disheveled; + did not appear stated age Affect: + depressed affect Results & Data Vital Signs (Past 12 Hours) Vital Signs Temp Pulse Pulse Resp BP BP Pulse Ox 04/04/19 07:11 37.1 C 108 H 16 131/90 95 04/04/19 05:43 37.5 C 127 H 20 158/96 H 90 04/04/19 03:15 36.6 C 107 H 22 144/92 H 99 04/04/19 00:00 36.9 C 96 H 19 134/88 97 04/03/19 23:30 88 PG Care Time/CCT Total # of Minutes Spent Total Time Spent with Patient: Total time spent is greater than 50% in coordination of care (as documented) at patient's floor/unit and/or counseling patient:
[2019-04-04] MEDS: MAGNESIUM SULFATE / D5W 1 GM/100 ML BAG IV SCH ×2 (10:55→12:02)
[2019-04-04] MEDS: POTASSIUM CHLORIDE 20 MEQ TABCR PO SCH ×3 (10:56→21:45)
[2019-04-04] MEDS: GABAPENTIN 600 MG TAB PO SCH ×3 (10:56→21:46)
[2019-04-04] MEDS: prednisoLONE SYRUP 15 MG/5 ML BTL PO SCH (13:53)
[2019-04-04] MEDS: PANTOprazole 40 MG TAB PO SCH (13:53)
--- NOTE | 2019-04-04 20:21 | Hospitalist Progress Note ---
Date of Service April 04, 2019 Assessment & Plan (1) Acute alcoholic hepatitis: in the setting of fairly advanced cirrhosis. followed by [facility]. discriminant function score is nearly 40 - start prednisolone 40mg daily x 30 days. serial labs. treat alcohol withdrawal. appreciate GI consultation and recommendations. MVI, thiamine 200mg IV BID, folic acid. IVF, supportive care. (2) Cirrhosis: advanced, with evidence of portal HTN findings on CT abd/pelvis. follows with [facility]. 2nd to heavy alcohol use chronically (up to 4 bottles/day of wine by report). see above in acute hepatitis. ammonia level surprisingly just about normal and no asterixis on exam. follow this carefully - at risk of hepatic encephalopathy. daily INR, LFTs, etc. PPI for GI proph in setting of daily steroid use and probable esophageal margarette ices, portal gastropathy, etc (3) Pancytopenia: 2nd to toxic effects of etoh in setting of advanced liver disease. if platelets drop below 20 then tx platelets. b12,folate,tsh wnl. daily CBC. (4) UTI (urinary tract infection): cont levaquin follow urine cx (5) Alcohol withdrawal: gabapentin protocol ativan IV per protocol alcohol withdrawal precautions in place MVI, thiamine BID, folic acid if ativan requirements increase may need infusion (6) Encephalopathy: multifactorial - acute liver failure, UTI, sedation from ativan, withdrawal, etc supportive care treat UTI treat withdrawal follow ammonia levels etc (7) Hypokalemia: replace BMP am (8) Rhabdomyolysis: 2nd to recent fall cont IV fluids repeat CPK am (9) Hypomagnesemia: replace, repeat level am (10) Coagulopathy: 2nd to acute alcoholic hepatitis in setting of advanced cirrhosis discriminant function score is high - starting steroids serial INRs could consider vitamin K supplementation but uncertain it would be helpful (11) DVT prophylaxis: SCDs updated at bedside will ultimately need PT/OT but too ill and weak (and not steady enough on feet) to participate evaluate daily Subjective early in the day patient, by report, was very sedated from copious amounts of IV ativan. she woke by early afternoon. was at bedside during my rounds. she was awake and able to answer my questions. she reported mild gum bleeding when brushing her teeth. her last drink was Saturday evening (confirmed by ). she states she had obtained sobriety but then relapsed in April 2018. she is very tired. mildly confused. Review of Systems Constitutional: no fever Respiratory: no dyspnea Cardiovascular: no chest pain Gastrointestinal: no abdominal pain, no nausea and no vomiting Musculoskeletal: + myalgia Physical Exam Constitutional: + ill appearing, + altered mental status and + lethargic; no acute distress and + not healthy appearing Eyes: + scleral abnormality (icterus ) ENMT: gums mildly erythematous but no overt bleeding; hallitosis present Respiratory: normal respiratory effort, lungs clear to auscultation Cardiovascular: Rate/Rhythm: regular rhythm and + tachycardic Heart Sounds: normal S1 and normal S2; no murmur Vessels: posterior tibial pulses present and dorsalis pedis pulses present; no JVD Extremities: no edema Gastrointestinal (Abdomen): Inspection/Auscultation: + abdomen distended Percussion/Palpation: + hepatosplenomegaly; abdomen nontender and no guarding ?ascites Skin: extensive ecchymoses/bruising over multiple locations (legs, arms, etc) jaundice on face Psychiatric: awake, but sleepy; mildly confused Results & Data Vital Signs (Past 12 Hours) Vital Signs Temp Pulse Resp BP Pulse Ox 04/04/19 18:45 37.3 C 99 H 20 143/87 H 95 04/04/19 15:06 37.2 C 103 H 18 134/84 98 Laboratory Results Laboratory Results - last 24 hr 04/04/19 04/04/19 04/04/19 05:07 05:07 05:07 WBC 4.28 L RBC 2.67 L Hgb 9.2 L Hct 26.9 L MCV 100.7 H MCH 34.5 H MCHC 34.2 RDW Std Deviation 50.6 H RDW Coeff of Margarette 13.8 Plt Count 25 L* MPV 10.3 Immature Gran % (Auto) 0.2 Neut % (Auto) 65.2 Lymph % (Auto) 20.8 [place] % (Auto) 10.7 Eos % (Auto) 1.9 Baso % (Auto) 1.2 Immature Gran # (Auto) 0.01 Neut # (Auto) 2.79 Lymph # (Auto) 0.89 L [place] # (Auto) 0.46 Eos # (Auto) 0.08 Baso # (Auto) 0.05 PT 18.2 H INR 1.9 H APTT 36.2 H PTT Ratio 1.3 Sodium 139 Potassium 3.3 L Chloride 108 H Carbon Dioxide 23 Anion Gap 9.0 BUN 6 L Creatinine 0.42 L Est Cr Clr Drug Dosing 191.7 Est GFR ( Amer) > 150.0 Est GFR (Non-Af Amer) 130.9 BUN/Creatinine Ratio 13.3 Glucose 94 Calcium 7.9 L Iron Total Bilirubin 7.2 H AST 145 H ALT 38 Alkaline Phosphatase 74 Ammonia Total Creatine Kinase 633 H Total Protein 7.5 Albumin 2.9 L Globulin 4.6 H Albumin/Globulin Ratio 0.6 L Vitamin B12 Folate 04/04/19 04/04/19 04/04/19 05:07 11:06 11:06 WBC RBC Hgb Hct MCV MCH MCHC RDW Std Deviation RDW Coeff of Margarette Plt Count MPV Immature Gran % (Auto) Neut % (Auto) Lymph % (Auto) [place] % (Auto) Eos % (Auto) Baso % (Auto) Immature Gran # (Auto) Neut # (Auto) Lymph # (Auto) [place] # (Auto) Eos # (Auto) Baso # (Auto) PT INR APTT PTT Ratio Sodium Potassium Chloride Carbon Dioxide Anion Gap BUN Creatinine Est Cr Clr Drug Dosing Est GFR ( Amer) Est GFR (Non-Af Amer) BUN/Creatinine Ratio Glucose Calcium Iron 165 H Total Bilirubin AST ALT Alkaline Phosphatase Ammonia 33.4 H Total Creatine Kinase Total Protein Albumin Globulin Albumin/Globulin Ratio Vitamin B12 836 Folate > 24.00 PG Care Time/CCT Total # of Minutes Spent Total Time Spent with Patient: Total time spent is greater than 50% in coordination of care (as documented) at patient's floor/unit and/or counseling patient: (1) Cirrhosis Hepatic cirrhosis type: alcoholic cirrhosis Ascites presence: unspecified Qualified Code(s): K70.30 - Alcoholic cirrhosis of liver without ascites (2) UTI (urinary tract infection) Urinary tract infection type: acute cystitis Hematuria presence: without hematuria Qualified Code(s): N30.00 - Acute cystitis without hematuria (3) Alcohol withdrawal Complication of substance-induced condition: with unspecified complication Qu alified Code(s): F10.239 - Alcohol dependence with withdrawal, unspecified (4) Rhabdomyolysis Rhabdomyolysis type: traumatic Encounter type: subsequent encounter Qualified Code(s): T79.6XXD - Traumatic ischemia of muscle, subsequent encounter
[2019-04-05] MEDS: LORazepam 2 MG/4 ML VIAL IV PRN ×5 (01:09→06:57)
[2019-04-05] MEDS: SODIUM CHLORIDE 0.9% 1000ML 1,000 ML IV SCH ×2 (04:20→09:46)
[2019-04-05 05:36] LABS: Hematocrit (blood only) 28.4 % (37-47); Hemoglobin 9.9 g/dL (12.0-16.0); Mean Corpuscular Hemoglobin 35.2 pg (25-34); Mean Corpuscular Hgb Conc 34.9 g/dL (32-36); Mean Corpuscular Volume 101.1 fL (80-100); RDW Coefficient of Variation 13.6 % (11.5-14.5); RDW Standard Deviation 50.7 fL (36.4-46.3); Red Blood Count 2.81 M/uL (4.2-5.4)
[2019-04-05 05:38] LABS: Mean Platelet Volume 10.3 fL (7.4-10.4); Platelet Count 32 K/uL (130-400)
[2019-04-05 05:50] LABS: INR 1.8 (0.9-1.1); Partial Thromboplastin Ratio 1.3; Partial Thromboplastin Time 34.1 Seconds (21.0-31.0); Prothrombin Time 17.7 Seconds (9.0-12.0)
[2019-04-05 06:03] LABS: Basophils # (auto) 0.07 K/uL (0-0.2); Basophils % (auto) 1.3 %; Eosinophils # (auto) 0.16 K/uL (0-0.5); Eosinophils % (auto) 3.1 %; Immature Granulocytes # (auto) 0.01 K/uL (0.00-0.02); Immature Granulocytes % (auto) 0.2 %; Lymphocytes # (auto) 1.02 K/uL (1.2-3.4); Lymphocytes % (auto) 19.6 %; Monocytes # (auto) 0.61 K/uL (0.11-0.59); Monocytes % (auto) 11.7 %; Neutrophils # (auto) 3.33 K/uL (1.4-6.5); Neutrophils % (auto) 64.1 %
[2019-04-05] MEDS: GABAPENTIN 600 MG TAB PO SCH ×2 (06:07→13:20)
[2019-04-05 06:31] LABS: Albumin Globulin Ratio 0.6 (0.9-2); Albumin Level 2.9 gm/dl (3.4-5.0); BUN Creatinine Ratio 8.8 (10-20); Bilirubin,Total 6.5 mg/dl (0.2-1); Calcium 7.6 mg/dl (8.5-10.1); Creatinine Clr Calc Pharmacy 171.3 ml/min; Est GFR (African American) 146.3; Est GFR (Non-African American) 126.2; Globulin 4.8 gm/dl (2.5-4.0); Potassium 3.4 mmol/L (3.5-5.1); Total Protein 7.7 gm/dl (6.4-8.2)
[2019-04-05] MEDS: LORazepam 3 MG/6 ML VIAL IV PRN ×2 (07:45→08:52)
[2019-04-05] MEDS: PANTOprazole 40 MG TAB PO SCH (07:48)
[2019-04-05] MEDS: prednisoLONE SYRUP 15 MG/5 ML BTL PO SCH (07:48)
[2019-04-05] MEDS: POTASSIUM CHLORIDE 20 MEQ TABCR PO SCH ×3 (07:48→21:02)
--- NOTE | 2019-04-05 08:27 | Hospitalist Progress Note ---
Date of Service April 05, 2019 Assessment & Plan (1) Alcohol withdrawal: ongoing, severe. gabapentin protocol in place ativan IV per protocol in place alcohol withdrawal precautions in place MVI, thiamine BID, folic acid requiring copious amounts of IV ativan for withdrawal symptoms and despite such still agitated, at risk of injury, etc. spoke with Dr Amaya from ICU - will transfer to ICU for likely infusion for sedation/withdrawal purposes (2) Fever: could be 2nd to alcohol withdrawal itself. could be 2nd to UTI. will need to check the right breast ruptured implant area to ensure no cellulitis, etc. currently on levaquin for UTI - urine cx still pending. will broaden abx from levaquin to ertapenem due to PCN/cephalosporin allergy. (3) Acute alcoholic hepatitis: in the setting of advanced cirrhosis. followed by [facility]. discriminant function score is nearly 40 - started prednisolone 40mg daily x 30 days. Day #1 - 04/04/19. labs today scantly better with INR about the same as yesterday. platelet count modestly improved. treating alcohol withdrawal - see below. appreciate GI consultation and recommendations. MVI, thiamine 200mg IV BID, folic acid. IVF, supportive care. (4) Cirrhosis: advanced, with evidence of portal HTN findings on CT abd/pelvis. follows with [facility]. 2nd to heavy alcohol use chronically (up to 4 bottles/day of wine by report). see above in acute hepatitis. ammonia level surprisingly just about normal and surprisingly still no asterixis on exam. INR high but no worse than yesterday (actually down 0.1 today from yesterday). PPI for GI proph in setting of daily steroid use and probable esophageal varices, portal gastropathy, etc (5) Pancytopenia: 2nd to toxic effects of etoh in setting of advanced liver disease. b12,folate,tsh wnl. daily CBC. platelets modestly improved today. (6) UTI (urinary tract infection): had fever last pm despite levaquin. could have resistant pathogen. change levaquin to ertapenem. follow urine cx. (7) Encephalopathy: multifactorial - acute liver failure, UTI, etoh withdrawal, etc. CT head at admission neg for acute process. supportive care treat UTI treat withdrawal follow ammonia levels etc (8) Hypokalemia: replacing PO/IV nearly normal today BMP am follow-up on mag level from this am (still pending) (9) Rhabdomyolysis: 2nd to recent fall cont IV fluids repeat CPK improved (10) Hypomagnesemia: replaced IV yesterday repeat level this am pending (11) Coagulopathy: 2nd to acute alcoholic hepatitis in setting of advanced cirrhosis discriminant function score is high - starting steroids serial INRs could consider vitamin K supplementation but uncertain it would be helpful INR scantly improved today to 1.8 (12) Ruptured right breast implant: noted need to examine this area for any signs of superimposed infection, etc she does not have any pain, however if any concerns -- plastics consult yesterday reported that it is chronic and they had seen plastics about the rupture but plastics deferred on Rx due to cirrhosis, platelet issues, etc (13) DVT prophylaxis: SCDs attempted to call this am informing him of transfer to ICU - no answer, could not leave message care d/w Dr Amaya transferring to ICU Subjective nursing staff report patient was agitated all night, trying to get out of bed, confused, etc. required 13+ mg of ativan since 10pm last night and despite such still agitated. when I arrived at the bedside she had her legs over the side rails and was t rying to get up out of bed. she was asking "if my parents or are in the hallway." she had just received 3 mg of IV ativan before my arrival. she denied any pain. denied abd pain. denied dyspnea. thought it was 1998 but knew she was in the hospital. tele with sinus tach. Review of Systems Constitutional: + fatigue and + weakness Respiratory: no cough and no dyspnea Cardiovascular: no chest pain Gastrointestinal: + nausea and + vomiting (x 1 this am); no abdominal pain Physical Exam Constitutional: + ill appearing and + altered mental status; no acute distress and + not healthy appearing trying to crawl out of bed Eyes: + scleral abnormality (icterus ) Respiratory: normal respiratory effort, lungs clear to auscultation Auscultation: + diminished lung sounds (left base) Cardiovascular: Rate/Rhythm: regular rhythm and + tachycardic Heart Sounds: normal S1 and normal S2; no murmur Vessels: posterior tibial pulses present and dorsalis pedis pulses present; no JVD Extremities: no edema Gastrointestinal (Abdomen): Inspection/Auscultation: + abdomen distended Percussion/Palpation: + hepatosplenomegaly; abdomen nontender and no guarding Skin: + jaundice (face) and + ecchymosis (extensive - right forearm, face, legs/knees, other locations) Trauma: + evidence of skin trauma Results & Data Vital Signs (Past 12 Hours) Vital Signs Temp Pulse Pulse Resp BP Pulse Ox 04/05/19 07:30 37.1 C 114 H 20 168/89 H 96 04/05/19 07:05 37.2 C 116 H 20 140/85 96 04/05/19 05:17 36.9 C 04/05/19 03:31 38.5 C H 108 H 19 130/82 94 04/05/19 00:00 104 H 04/04/19 22:53 36.7 C 101 H 16 136/83 97 Laboratory Results Laboratory Results - last 24 hr 04/04/19 04/04/19 04/04/19 05:07 11:06 11:06 WBC RBC Hgb Hct MCV MCH MCHC RDW Std Deviation RDW Coeff of Margarette Plt Count MPV Immature Gran % (Auto) Neut % (Auto) Lymph % (Auto) [place] % (Auto) Eos % (Auto) Baso % (Auto) Immature Gran # (Auto) Neut # (Auto) Lymph # (Auto) [place] # (Auto) Eos # (Auto) Baso # (Auto) PT INR APTT PTT Ratio Sodium Potassium Chloride Carbon Dioxide Anion Gap BUN Creatinine Est Cr Clr Drug Dosing Est GFR ( Amer) Est GFR (Non-Af Amer) BUN/Creatinine Ratio Glucose Calcium Magnesium Iron 165 H Total Bilirubin AST ALT Alkaline Phosphatase Ammonia 33.4 H Total Creatine Kinase Total Protein Albumin Globulin Albumin/Globulin Ratio Vitamin B12 836 Folate > 24.00 04/05/19 04/05/19 04/05/19 05:13 05:13 05:13 WBC 5.20 RBC 2.81 L Hgb 9.9 L Hct 28.4 L MCV 101.1 H MCH 35.2 H MCHC 34.9 RDW Std Deviation 50.7 H RDW Coeff of Margarette 13.6 Plt Count 32 L MPV 10.3 Immature Gran % (Auto) 0.2 Neut % (Auto) 64.1 Lymph % (Auto) 19.6 [place] % (Auto) 11.7 Eos % (Auto) 3.1 Baso % (Auto) 1.3 Immature Gran # (Auto) 0.01 Neut # (Auto) 3.33 Lymph # (Auto) 1.02 L [place] # (Auto) 0.61 H Eos # (Auto) 0.16 Baso # (Auto) 0.07 PT 17.7 H INR 1.8 H APTT 34.1 H PTT Ratio 1.3 Sodium 138 Potassium 3.4 L Chloride 109 H Carbon Dioxide 23 Anion Gap 6.0 BUN 4 L Creatinine 0.47 L Est Cr Clr Drug Dosing 171.3 Est GFR ( Amer) 146.3 Est GFR (Non-Af Amer) 126.2 BUN/Creatinine Ratio 8.8 L Glucose 97 Calcium 7.6 L Magnesium Iron Total Bilirubin 6.5 H AST 121 H ALT 37 Alkaline Phosphatase 72 Ammonia Total Creatine Kinase 403 H Total Protein 7.7 Albumin 2.9 L Globulin 4.8 H Albumin/Globulin Ratio 0.6 L Vitamin B12 Folate 04/05/19 05:13 WBC RBC Hgb Hct MCV MCH MCHC RDW Std Deviation RDW Coeff of Margarette Plt Count MPV Immature Gran % (Auto) Neut % (Auto) Lymph % (Auto) [place] % (Auto) Eos % (Auto) Baso % (Auto) Immature Gran # (Auto) Neut # (Auto) Lymph # (Auto) [place] # (Auto) Eos # (Auto) Baso # (Auto) PT INR APTT PTT Ratio Sodium Potassium Chloride Carbon Dioxide Anion Gap BUN Creatinine Est Cr Clr Drug Dosing Est GFR ( Amer) Est GFR (Non-Af Amer) BUN/Creatinine Ratio Glucose Calcium Magnesium Pending Iron Total Bilirubin AST ALT Alkaline Phosphatase Ammonia Total Creatine Kinase Total Protein Albumin Globulin Albumin/Globulin Ratio Vitamin B12 Folate PG Care Time/CCT Total # of Minutes Spent Total Time Spent with Patient: Total time spent is greater than 50% in coordination of care (as documented) at patient's floor/unit and/or counseling patient: (1) UTI (urinary tract infection) Hematuria presence: without hematuria Urinary tract infection type: acute cystitis Qualified Code(s): N30.00 - Acute cystitis without hematuria (2) Alcohol withdrawal Complication of substance-induced condition: with unspecified complication Qualified Code(s): F10.239 - Alcohol dependence with withdrawal, unspecified (3) Cirrhosis Ascites presence: unspecified Hepatic cirrhosis type: alcoholic cirrhosis Qualified Code(s): K70.30 - Alcoholic cirrhosis of liver without ascites (4) Ruptured right breast implant Encounter type: subsequent encounter Qualified Code(s): T85.43XD - Leakage of breast prosthesis and implant, subsequent encounter (5) Rhabdomyolysis Encounter type: subsequent encounter Rhabdomyolysis type: traumatic Qualified Code(s): T79.6XXD - Traumatic ischemia of muscle, subsequent encounter (6) Fever Fever type: unspecified Qualified Code(s): R50.9 - Fever, unspecified
[2019-04-05] MEDS ORDERED: THIAMINE HCL 200 MG in SODIUM CHLORIDE 0.9% 50 ML IV SCH (09:00)
[2019-04-05] MEDS: NSS + 20MEQ KCL 20 MEQ/1,000 ML BAG IV SCH ×2 (09:04→17:40)
[2019-04-05] MEDS: FOLIC ACID 1 MG in SYRINGE 9.8 ML IV SCH (09:04)
--- NOTE | 2019-04-05 09:22 | Critical Care Consultation ---
Date of Consultation April 05, 2019 Assessment & Plan (1) Alcohol withdrawal: Reason Critically Ill: 38-year-old female in active delirium tremens PLAN: Neuro: Frequent falls: Possible neuropathy: Probable Korsakoff syndrome -Increase thiamine supplementation 500 mg 3 times daily x2 days then transition back to 200 mg IV -200 mg thiamine placed on hold and restart date already ordered Alcohol withdrawal -Transition to phenobarbital: IV given significant thrombocytopenia -Loading dose will be 6 mg/kg with additional 10% reduction for history of cirrhosis: 40% now then 3 hours later 30% 3 hours later 30% (165 mg IV now, 120 Iv to followx2) -64.8 mg p.o. twice daily x2 doses to start this evening at 9 PM -32.4 mg p.o. twice daily x3 doses to start after 64.8 mg dosing -64 mg IV as needed every 6 hours for following indications: -Systolic blood pressure > 160 -Heart rate> 115 -RASS greater than or equal to 2 -Active hallucination Acute encephalopathy -Likely toxic metabolic and multifactorial Resp: End-tidal CO2 monitoring given phenobarbital use CV: Prolonged QT interval -Avoid QT prolonging medications: Levaquin -Aggressive magnesium supplementation Fluids/Renal: Rhabdomyolysis: Improving -Discontinued CK labs ID: Fever -Single temperature of 38.5 overnight, relative immunocompromise however there is no apparent left shift mild lymphopenia and predominance of monocytes -Urine culture nondiagnostic however patient would have been treated and additional day for simple uncomplicated urinary tract infection -Ordered Invanz by hospitalist team, I think is reasonable given reported allergy to penicillins. -Attempt to obtain blood cultures and procalcitonin. GI/Nutrition: Cirrhosis -Reviewed GI consultation -Followed by [facility]. -discriminant function score is nearly 40 - started prednisolone 40mg daily x 30 days. Day #1 - 04/04/19. -Attempting to obtain records from [facility] as well as [facility] as resident note indicates possibility of hemochromatosis diagn osis Heme: Coagulopathy: Elevated INR -Vitamin K 5 mg IV today with daily multivitamin Thrombocytopenia DVT prophylaxis: SCDs, chemical prophylaxis contraindicated at this time Musculoskeletal: Ruptured right breast implant -Records indicate they have followed with plastics and deferring treatment at this time due to ongoing medical issues Endocrine: ICU hyperglycemia protocol Vascular access: Peripheral IVs Code Status: Full code I have personally spent 45 minutes of critical care time in the direct management of this patient. This is a life/limb threatening event. This inc ludes time spent evaluating patient, direct bedside care, chart review, placing orders, interpretation of diagnostic studies, discussion with consultants, patient, and/or family members regarding treatment decisions, as well as other required patient management activities. This time is exclusive of all separately billable procedures, and teaching time and separate from and in addition to any other critical care service time. 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 As sedation requirement increases I have been asked to evaluate and treat the patient. According to prior records patient drinks 3-4 bottles of wine daily her last drink was immediately before entering rehab, she is started drinking heavily again in 2018 and has approximately 8-year history of alcohol abuse. Patient was being treated with Levaquin for possible urinary tract infection. Patient has known history of pancytopenia which is likely secondary to bone marrow suppression from cirrhosis and underlying alcohol abuse. Possible neuropathy and concern for Warnicke Korsakoff syndrome. She is known history of ruptured breast implant however she has seen plastic surgery and she is not a current surgical candidate given multiple comorbidities at this time. Possible history of hemochromatosis, would strongly avoid blood products, if if possible. Reported diagnosis came from [facility] will attempt to his receive records regarding this, reviewed GI consultation she is normally seen at [facility]. She is certainly not a transplant candidate given her alcohol use and abuse. Patient's discriminant factor is elevated so she has been started on prednisolone therapy. 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 Other Information That Helps Us Care for You: No Feels Safe at Home: Yes Safety Concerns: Feels Safe At This Time Smoking Status: Light tobacco smoker Tobacco Type: cigarettes ; Do You Dip or Chew Tobacco: No ; Second Hand Exposure: Yes (Home.) ; Tobacco Cessation Education Requested by Patient: No (Refuses.) Hx Alcohol Use: Yes Alcohol type: wine Hx Substance Use: Yes substance use type: marijuana Last Used Substance: Days (ago) Review of Systems Review of Systems: Unobtainable due to reduced consciousness Physical Exam Physical Exam: General: Female with multiple ecchymoses in various stages of resolution, agitated but mildly redirectable I have reviewed the recorded vital signs Neurological: RASS score: 1, Moves all 4 extremities, tremulous Psychological: GCS 15 following complex commands Eyes: Pupils are equal, round and reactive to light, anicteric sclera. Symmetrical lids. HENT: Oropharynx Clear, moist Mucous Membranes. Neck: Supple. Symmetric. trachea midline. No thyromegaly. Cardiovascular: Normal peripheral perfusion. Distal pulses and capillary refill intact. No JVD. Respiratory: Respirations are non-labored, no accessory muscle use. Breath sounds are equal. Gastrointestinal: Soft. Non-distended. Lymphatic: No cervical lymphadenopathy. Musculoskeletal: No deformity. No clubbing nor cyanosis. Results & Data Vital Signs (Past 12 Hours) Vital Signs Temp Pulse Pulse Resp BP Pulse Ox 04/05/19 09:06 37.1 C 121 H 20 142/93 H 97 04/05/19 08:42 37.0 C 116 H 20 131/92 95 04/05/19 07:45 110 H 04/05/19 07:30 37.1 C 114 H 20 168/89 H 96 04/05/19 07:05 37.2 C 116 H 20 140/85 96 04/05/19 05:17 36.9 C 04/05/19 03:31 38.5 C H 108 H 19 130/82 94 04/05/19 00:00 104 H 04/04/19 22:53 36.7 C 101 H 16 136/83 97 Laboratory Results 04/05/19 04/05/19 04/05/19 Range/Units 05:13 05:13 05:13 WBC (4.8-10.8) K/uL RBC (4.2-5.4) M/uL Hgb (12.0-16.0) g/dL Hct (37-47) % MCV (80-100) fL MCH (25-34) pg MCHC (32-36) g/dL RDW Std Deviation (36.4-46.3) fL RDW Coeff of Margarette (11.5-14.5) % Plt Count (130-400) K/uL MPV (7.4-10.4) fL Immature Gran % (Auto) % Neut % (Auto) % Lymph % (Auto) % [place] % (Auto) % Eos % (Auto) % Baso % (Auto) % Immature Gran # (Auto) (0.00-0.02) K/uL Neut # (Auto) (1.4-6.5) K/uL Lymph # (Auto) (1.2-3.4) K/uL [place] # (Auto) (0.11-0.59) K/uL Eos # (Auto) (0-0.5) K/uL Baso # (Auto) (0-0.2) K/uL PT 17.7 H (9.0-12.0) Seconds INR 1.8 H (0.9-1.1) APTT 34.1 H (21.0-31.0) Seconds PTT Ratio 1.3 Sodium 138 (136-145) mmol/L Potassium 3.4 L (3.5-5.1) mmol/L Chloride 109 H (98-107) mmol/L Carbon Dioxide 23 (21-32) mmol/L Anion Gap 6.0 (3-11) BUN 4 L (7-18) mg/dl Creatinine 0.47 L (0.6-1.2) mg/dl Est Cr Clr Drug Dosing 171.3 ml/min Est GFR ( Amer) 146.3 Est GFR (Non-Af Amer) 126.2 BUN/Creatinine Ratio 8.8 L (10-20) Glucose 97 (70-99) mg/dl Calcium 7.6 L (8.5-10.1) mg/dl Magnesium 1.8 (1.8-2.4) mg/dl Iron (35-150) mcg/dl Total Bilirubin 6.5 H (0.2-1) mg/dl AST 121 H (15-37) U/L ALT 37 (12-78) U/L Alkaline Phosphatase 72 (45-117) U/L Ammonia (11-32) umol/L Total Creatine Kinase 403 H (26-192) U/L Total Protein 7.7 (6.4-8.2) gm/dl Albumin 2.9 L (3.4-5.0) gm/dl Globulin 4.8 H (2.5-4.0) gm/dl Albumin/Globulin Ratio 0.6 L (0.9-2) 04/05/19 04/04/19 04/04/19 Range/Units 05:13 11:06 11:06 WBC 5.20 (4.8-10.8) K/uL RBC 2.81 L (4.2-5.4) M/uL Hgb 9.9 L (12.0-16.0) g/dL Hct 28.4 L (37-47) % MCV 101.1 H (80-100) fL MCH 35.2 H (25-34) pg MCHC 34.9 (32-36) g/dL RDW Std Deviation 50.7 H (36.4-46.3) fL RDW Coeff of Margarette 13.6 (11.5-14.5) % Plt Count 32 L (130-400) K/uL MPV 10.3 (7.4-10.4) fL Immature Gran % (Auto) 0.2 % Neut % (Auto) 64.1 % Lymph % (Auto) 19.6 % [place] % (Auto) 11.7 % Eos % (Auto) 3.1 % Baso % (Auto) 1.3 % Immature Gran # (Auto) 0.01 (0.00-0.02) K/uL Neut # (Auto) 3.33 (1.4-6.5) K/uL Lymph # (Auto) 1.02 L (1.2-3.4) K/uL [place] # (Auto) 0.61 H (0.11-0.59) K/uL Eos # (Auto) 0.16 (0-0.5) K/uL Baso # (Auto) 0.07 (0-0.2) K/uL PT (9.0-12.0) Seconds INR (0.9-1.1) APTT (21.0-31.0) Seconds PTT Ratio Sodium (136-145) mmol/L Potassium (3.5-5.1) mmol/L Chloride (98-107) mmol/L Carbon Dioxide (21-32) mmol/L Anion Gap (3-11) BUN (7-18) mg/dl Creatinine (0.6-1.2) mg/dl Est Cr Clr Drug Dosing ml/min Est GFR ( Amer) Est GFR (Non-Af Amer) BUN/Creatinine Ratio (10-20) Glucose (70-99) mg/dl Calcium (8.5-10.1) mg/dl Magnesium (1.8-2.4) mg/dl Iron 165 H (35-150) mcg/dl Total Bilirubin (0.2-1) mg/dl AST (15-37) U/L ALT (12-78) U/L Alkaline Phosphatase (45-117) U/L Ammonia 33.4 H (11-32) umol/L Total Creatine Kinase (26-192) U/L Total Protein (6.4-8.2) gm/dl Albumin (3.4-5.0) gm/dl Globulin (2.5-4.0) gm/dl Albumin/Globulin Ratio (0.9-2) PG Care Time/CCT Total # of Minutes Spent Total Time Spent with Patient: Total time spent is greater than 50% in coordination of care (as documented) at patient's floor/unit and/or counseling patient: Critical Care Time: Yes Total Critical Care Time: 45 (1) UTI (urinary tract infection) Hematuria presence: without hematuria Urinary tract infection type: acute cystitis Qualified Code(s): N30.00 - Acute cystitis without hematuria (2) Fever Fever type: unspecified Qualified Code(s): R50.9 - Fever, unspecified (3) Alcohol withdrawal Complication of substance-induced condition: with unspecified complication Qualified Code(s): F10.239 - Alcohol dependence with withdrawal, unspecified (4) Cirrhosis Ascites presence: unspecified Hepatic cirrhosis type: alcoholic cirrhosis Qualified Code(s): K70.30 - Alcoholic cirrhosis of liver without ascites (5) Ruptured right breast implant Encounter type: subsequent encounter Qualified Code(s): T85.43XD - Leakage of breast prosthesis and implant, subsequent encounter
[2019-04-05] MEDS ORDERED: PHENobarbital sodium 65 MG/ML VIAL IV STA (09:30)
[2019-04-05] MEDS: ERTAPENEM SODIUM 1,000 MG in SODIUM CHLORIDE 0.9% 50 ML IV SCH (09:35)
[2019-04-05] MEDS: CEROVITE ADV FORMULA TAB PO SCH ×2 (09:36→09:43)
[2019-04-05] MEDS ORDERED: PHENobarbital sodium 65 MG/ML VIAL IV PRN (09:59)
[2019-04-05] MEDS ORDERED: PHYTONADIONE 5 MG in SODIUM CHLORIDE 0.9% 50 ML IV ONE (10:00)
[2019-04-05] MEDS: MAGNESIUM SULFATE / D5W 1 GM/100 ML BAG IV SCH ×2 (10:25→11:49)
[2019-04-05] MEDS: PHENOBARBITAL SODIUM IV SCH ×2 (11:49→15:58)
[2019-04-05] MEDS ORDERED: PHENobarbital sodium 65 MG/ML VIAL IV SCH (12:30)
[2019-04-05] MEDS: THIAMINE HCL 500 MG in 0.9 % SODIUM CHLORIDE 100 ML IV SCH ×2 (14:30→21:03)
[2019-04-05] MEDS ORDERED: PHENobarbital 32.4 MG TAB PO SCH (21:00)
[2019-04-05] MEDS: MAGNESIUM OXIDE 400 MG TAB PO SCH (21:02)
[2019-04-06] MEDS: GABAPENTIN 600 MG TAB PO SCH ×2 (00:25→11:41)
[2019-04-06] MEDS: NSS + 20MEQ KCL 20 MEQ/1,000 ML BAG IV SCH ×2 (01:55→10:19)
[2019-04-06 04:32] LABS: Hematocrit (blood only) 28.7 % (37-47); Hemoglobin 9.9 g/dL (12.0-16.0); Mean Corpuscular Hemoglobin 34.6 pg (25-34); Mean Corpuscular Hgb Conc 34.5 g/dL (32-36); Mean Corpuscular Volume 100.3 fL (80-100); RDW Coefficient of Variation 13.7 % (11.5-14.5); RDW Standard Deviation 50.1 fL (36.4-46.3); Red Blood Count 2.86 M/uL (4.2-5.4); White Blood Count 5.39 K/uL (4.8-10.8)
[2019-04-06 04:39] LABS: INR 1.8 (0.9-1.1); Partial Thromboplastin Ratio 1.2; Partial Thromboplastin Time 32.1 Seconds (21.0-31.0); Prothrombin Time 17.7 Seconds (9.0-12.0)
[2019-04-06 04:49] LABS: Alanine Aminotransferase 35 U/L (12-78); Albumin Level 2.7 gm/dl (3.4-5.0); Aspartate Aminotransferase 88 U/L (15-37); Blood Urea Nitrogen 6 mg/dl (7-18); Calcium 7.2 mg/dl (8.5-10.1); Carbon Dioxide 21 mmol/L (21-32); Chloride 109 mmol/L (98-107); Creatinine Clr Calc Pharmacy 206.4 ml/min; Est GFR (African American) > 150.0; Est GFR (Non-African American) 134.2; Glucose 77 mg/dl (70-99); Potassium 3.8 mmol/L (3.5-5.1); Sodium 138 mmol/L (136-145)
[2019-04-06 04:52] LABS: Albumin Globulin Ratio 0.6 (0.9-2); Alkaline Phosphatase 66 U/L (45-117); Bilirubin,Total 5.1 mg/dl (0.2-1); Globulin 4.7 gm/dl (2.5-4.0); Total Protein 7.4 gm/dl (6.4-8.2)
[2019-04-06 05:02] LABS: Mean Platelet Volume 9.9 fL (7.4-10.4); Platelet Count 44 K/uL (130-400)
[2019-04-06 05:38] LABS: Basophils # (auto) 0.04 K/uL (0-0.2); Basophils % (auto) 0.7 %; Eosinophils # (auto) 0.14 K/uL (0-0.5); Eosinophils % (auto) 2.6 %; Immature Granulocytes # (auto) 0.01 K/uL (0.00-0.02); Immature Granulocytes % (auto) 0.2 %; Lymphocytes # (auto) 1.19 K/uL (1.2-3.4); Lymphocytes % (auto) 22.1 %; Monocytes # (auto) 0.49 K/uL (0.11-0.59); Monocytes % (auto) 9.1 %; Neutrophils # (auto) 3.52 K/uL (1.4-6.5); Neutrophils % (auto) 65.3 %
[2019-04-06] MEDS: PANTOprazole 40 MG TAB PO SCH (08:44)
[2019-04-06] MEDS: MAGNESIUM OXIDE 400 MG TAB PO SCH (08:44)
[2019-04-06] MEDS: CEROVITE ADV FORMULA TAB PO SCH (08:44)
[2019-04-06] MEDS: FOLIC ACID 1 MG in SYRINGE 9.8 ML IV SCH (08:44)
[2019-04-06] MEDS: prednisoLONE SYRUP 15 MG/5 ML BTL PO SCH (08:44)
[2019-04-06] MEDS: ERTAPENEM SODIUM 1,000 MG in SODIUM CHLORIDE 0.9% 50 ML IV SCH (08:44)
[2019-04-06] MEDS: POTASSIUM CHLORIDE 20 MEQ TABCR PO SCH ×3 (08:44→23:20)
[2019-04-06] MEDS: THIAMINE HCL 500 MG in 0.9 % SODIUM CHLORIDE 100 ML IV SCH ×3 (08:45→20:40)
--- NOTE | 2019-04-06 08:54 | Critical Care Progress Note ---
Date of Service April 06, 2019 Assessment & Plan (1) Alcohol withdrawal: Reason Critically Ill: 38-year-old female in active delirium tremens PLAN: Neuro: Frequent falls: Possible neuropathy: Probable Korsakoff syndrome -Increase thiamine supplementation 500 mg 3 times daily x2 days then transition back to 200 mg IV -200 mg thiamine placed on hold and restart date already ordered Alcohol withdrawal -Transition to AWSS protocol on Ativan taper -Monitor for signs and symptoms of progression to DT Acute encephalopathy -Likely toxic metabolic and multifactorial Resp: d/c End-tidal CO2 monitoring CV: Prolonged QT interval -Avoid QT prolonging medications: Levaquin -Aggressive magnesium supplementation Fluids/Renal: Rhabdomyolysis: Improving -Discontinued CK labs ID: Fever -Single temperature of 38.5 overnight, relative immunocompromise however there is no apparent left shift mild lymphopenia and predominance of monocytes -Urine culture nondiagnostic however patient would have been treated and additional day for simple uncomplicated urinary tract infection -DC'd ertapenem and switch to Macrobid -Procalcitonin negative at 0.09, blood NGTD Hyper ammonia Start lactulose 20 makes 3 times daily GI/Nutrition: Cirrhosis -Reviewed GI consultation -Followed by [facility]. -discriminant function score is nearly 40 - started prednisolone 40mg daily x 30 days. Day #1 - 04/04/19. -Attempting to obtain records from [facility] as well as [facility] as resident note indicates possibility of hemochromatosis diagnosis Heme: Coagulopathy: Elevated INR -Vitamin K 5 mg IV today with daily multivitamin Thrombocytopenia DVT prophylaxis: SCDs, chemical prophylaxis contraindicated at this time Musculoskeletal: Ruptured right breast implant -Records indicate they have followed with plastics and deferring treatment at this time due to ongoing medical issues Endocrine: ICU hyperglycemia protocol Vascular access: Peripheral IVs Code Status: Full code Thank you for allowing us to dissipate in this patient's care, please see my attending Dr. Mcclain's attestation for further details. (2) Alcoholic Korsakoff syndrome: (3) Acute alcoholic hepatitis: (4) Cirrhosis: (5) Prolonged Q-T interval on ECG: Supervising Physician Co-Signing Physician Notes Dr. Villafana was the resident physician taking care of the patient. I generally agree with the findings and plan. I have subsequently examined and discussed the plan of care patient. I agree with his note aside for any additions/exceptions that I have made: Patient appears to be doing clinically better today from an alcohol withdrawal standpoint. We are discontinuing the phenobarbital protocol and switching her to an Ativan based protocol. She is to finish off her gabapentin taper. She is to finish her high-dose thiamine. Her ammonia was elevated and we will start her on lactulose 20 mg 3 times daily with a goal of 3-4 bowel movements daily. She does have a history of hemochromatosis. Gastroenterology is following her and they recommended prednisone taper over 30 days for her elevated MDF score. She does have symptoms of urinary tract infection and a UA that is mildly positive. We will continue her on 5 days total of antibiotics. Stop the ertapenem and switch to Macrobid. I counseled the patient to abstain from alcohol and she says she has a therapist who she sees as an outpatient. She is not interested in seeing psychiatry or psychologist as an inpatient. She denies any suicidal or homicidal ideation. She can start on a diet. Discontinue IV fluids. Discontinue Mason. She is stable to be transferred to the floor with telemetry. Subjective Patient is a 38-year-old female lying in bed in no acute distress this morning. In conversation with the patient she does appear a bit more altered, although for the most part she is AAO x3. Patient did well overnight, has not had any seizures, or evidence of DTs. Patient is previous he been on a phenobarbital taper, and has been doing well with that. Patient does not have any specific acute concerns or complaints. A Mason is in place, patient is having bowel movements, tolerating her diet, sleeping. No acute concerns at present, all questions answered. Review of Systems Review of Systems: All systems reviewed & are unremarkable except as noted in HPI & below Physical Exam Physical Exam: General: No acute distress, appears slightly altered HEENT: Normocephalic atraumatic Neck: Normal visual inspection, did not appreciate JVD, trachea midline Cardiac: Regular rate and rhythm, normal S1, normal S2, no murmurs rubs or gallops, negative pedal edema, negative calf tenderness Respiratory: Clear to auscultation bilaterally, symmetrical chest rise GI: Normal bowel sounds, soft, nontender, nondistended MSK: Moves all extremities Skin: Bruises under her chin and on her right arm otherwise no acute concerns Neuro: Alert and oriented x3ish Psych: Calm, cooperative, seems to have some insight Results & Data Vital Signs (Past 12 Hours) Vital Signs Temp Pulse BP Pulse Ox 04/06/19 06:00 36.6 C 97 H 122/78 98 04/06/19 05:00 87 121/79 98 04/06/19 04:00 36.8 C 92 H 119/74 98 04/06/19 03:00 87 123/80 97 04/06/19 02:00 36.4 C L 92 H 107/80 96 04/06/19 01:00 94 H 105/70 96 04/06/19 00:00 36.5 C 90 134/76 94 04/05/19 23:50 88 107/80 97 04/05/19 23:00 94 H 107/80 96 04/05/19 22:00 89 117/83 97 04/05/19 21:00 91 H 135/88 99 Laboratory Results 04/06/19 04/06/19 04/06/19 Range/Units 04:16 04:16 04:16 WBC (4.8-10.8) K/uL RBC (4.2-5.4) M/uL Hgb (12.0-16.0) g/dL Hct (37-47) % MCV (80-100) fL MCH (25-34) pg MCHC (32-36) g/dL RDW Std Deviation (36.4-46.3) fL RDW Coeff of Margarette (11.5-14.5) % Plt Count (130-400) K/uL MPV (7.4-10.4) fL Immature Gran % (Auto) % Neut % (Auto) % Lymph % (Auto) % [place] % (Auto) % Eos % (Auto) % Baso % (Auto) % Immature Gran # (Auto) (0.00-0.02) K/uL Neut # (Auto) (1.4-6.5) K/uL Lymph # (Auto) (1.2-3.4) K/uL [place] # (Auto) (0.11-0.59) K/uL Eos # (Auto) (0-0.5) K/uL Baso # (Auto) (0-0.2) K/uL PT 17.7 H (9.0-12.0) Seconds INR 1.8 H (0.9-1.1) APTT 32.1 H (21.0-31.0) Seconds PTT Ratio 1.2 Sodium 138 (136-145) mmol/L Potassium 3.8 (3.5-5.1) mmol/L Chloride 109 H (98-107) mmol/L Carbon Dioxide 21 (21-32) mmol/L Anion Gap 8.0 (3-11) BUN 6 L (7-18) mg/dl Creatinine 0.39 L (0.6-1.2) mg/dl Est Cr Clr Drug Dosing 206.4 ml/min Est GFR ( Amer) > 150.0 Est GFR (Non-Af Amer) 134.2 BUN/Creatinine Ratio 16.0 (10-20) Glucose 77 (70-99) mg/dl POC Glucose (70-99) Calcium 7.2 L (8.5-10.1) mg/dl Total Bilirubin 5.1 H (0.2-1) mg/dl AST 88 H (15-37) U/L ALT 35 (12-78) U/L Alkaline Phosphatase 66 (45-117) U/L Ammonia 44.0 H (11-32) umol/L Total Protein 7.4 (6.4-8.2) gm/dl Albumin 2.7 L (3.4-5.0) gm/dl Globulin 4.7 H (2.5-4.0) gm/dl Albumin/Globulin Ratio 0.6 L (0.9-2) Nasal Screen MRSA (PCR) (Negative) 04/06/19 04/06/19 04/05/19 Range/Units 04:16 00:22 Unknown WBC 5.39 (4.8-10.8) K/uL RBC 2.86 L (4.2-5.4) M/uL Hgb 9.9 L (12.0-16.0) g/dL Hct 28.7 L (37-47) % MCV 100.3 H (80-100) fL MCH 34.6 H (25-34) pg MCHC 34.5 (32-36) g/dL RDW Std Deviation 50.1 H (36.4-46.3) fL RDW Coeff of Margarette 13.7 (11.5-14.5) % Plt Count 44 L (130-400) K/uL MPV 9.9 (7.4-10.4) fL Immature Gran % (Auto) 0.2 % Neut % (Auto) 65.3 % Lymph % (Auto) 22.1 % [place] % (Auto) 9.1 % Eos % (Auto) 2.6 % Baso % (Auto) 0.7 % Immature Gran # (Auto) 0.01 (0.00-0.02) K/uL Neut # (Auto) 3.52 (1.4-6.5) K/uL Lymph # (Auto) 1.19 L (1.2-3.4) K/uL [place] # (Auto) 0.49 (0.11-0.59) K/uL Eos # (Auto) 0.14 (0-0.5) K/uL Baso # (Auto) 0.04 (0-0.2) K/uL PT (9.0-12.0) Seconds INR (0.9-1.1) APTT (21.0-31.0) Seconds PTT Ratio Sodium (136-145) mmol/L Potassium (3.5-5.1) mmol/L Chloride (98-107) mmol/L Carbon Dioxide (21-32) mmol/L Anion Gap (3-11) BUN (7-18) mg/dl Creatinine (0.6-1.2) mg/dl Est Cr Clr Drug Dosing ml/min Est GFR ( Amer) Est GFR (Non-Af Amer) BUN/Creatinine Ratio (10-20) Glucose (70-99) mg/dl POC Glucose 96 (70-99) Calcium (8.5-10.1) mg/dl Total Bilirubin (0.2-1) mg/dl AST (15-37) U/L ALT (12-78) U/L Alkaline Phosphatase (45-117) U/L Ammonia (11-32) umol/L Total Protein (6.4-8.2) gm/dl Albumin (3.4-5.0) gm/dl Globulin (2.5-4.0) gm/dl Albumin/Globulin Ratio (0.9-2) Nasal Screen MRSA (PCR) Negative (Negative) 04/05/19 Range/Units 17:41 WBC (4.8-10.8) K/uL RBC (4.2-5.4) M/uL Hgb (12.0-16.0) g/dL Hct (37-47) % MCV (80-100) fL MCH (25-34) pg MCHC (32-36) g/dL RDW Std Deviation (36.4-46.3) fL RDW Coeff of Margarette (11.5-14.5) % Plt Count (130-400) K/uL MPV (7.4-10.4) fL Immature Gran % (Auto) % Neut % (Auto) % Lymph % (Auto) % [place] % (Auto) % Eos % (Auto) % Baso % (Auto) % Immature Gran # (Auto) (0.00-0.02) K/uL Neut # (Auto) (1.4-6.5) K/uL Lymph # (Auto) (1.2-3.4) K/uL [place] # (Auto) (0.11-0.59) K/uL Eos # (Auto) (0-0.5) K/uL Baso # (Auto) (0-0.2) K/uL PT (9.0-12.0) Seconds INR (0.9-1.1) APTT (21.0-31.0) Seconds PTT Ratio Sodium (136-145) mmol/L Potassium (3.5-5.1) mmol/L Chloride (98-107) mmol/L Carbon Dioxide (21-32) mmol/L Anion Gap (3-11) BUN (7-18) mg/dl Creatinine (0.6-1.2) mg/dl Est Cr Clr Drug Dosing ml/min Est GFR ( Amer) Est GFR (Non-Af Amer) BUN/Creatinine Ratio (10-20) Glucose (70-99) mg/dl POC Glucose 150 H (70-99) Calcium (8.5-10.1) mg/dl Total Bilirubin (0.2-1) mg/dl AST (15-37) U/L ALT (12-78) U/L Alkaline Phosphatase (45-117) U/L Ammonia (11-32) umol/L Total Protein (6.4-8.2) gm/dl Albumin (3.4-5.0) gm/dl Globulin (2.5-4.0) gm/dl Albumin/Globulin Ratio (0.9-2) Nasal Screen MRSA (PCR) (Negative) Medications Administered Current Inpatient Medications Gabapentin (Neurontin) 600 mg PO Q12H [facility]IXON Stop: 04/06/19 12:01 Last Admin: 04/06/19 11:41 Dose: 600 mg Documented by: Gabapentin (Neurontin) 600 mg PO Q24H NIXON Stop: 04/07/19 12:01 Lorazepam (Ativan) 1 mg in 2 mls @ 2 mls/min IV UD PRN; Protocol PRN Reason: EtOH Withdrawl AWSS Score 6,7 Stop: 05/03/19 22:47 Lorazepam (Ativan) 2 mg in 4 mls @ 4 mls/min IV UD PRN; Protocol PRN Reason: EtOH Withdrawl AWSS Score 8,9 Stop: 05/03/19 22:47 Last Admin: 04/05/19 06:57 Dose: 4 mls/min Documented by: Lorazepam (Ativan) 3 mg in 6 mls @ 4 mls/min IV ONCE PRN; Protocol PRN Reason: EtOH Withdrawl AWSS Score >=10 Stop: 05/03/19 22:47 Last Admin: 04/05/19 08:52 Dose: 4 mls/min Documented by: Lorazepam (Ativan) 1 mg in 2 mls @ 2 mls/min IV ONE PRN; Protocol PRN Reason: EtoH Withdrawal AWSS 6-10 Stop: 05/03/19 22:47 Folic Acid 1 mg/ Syringe 10 mls @ 5 mls/min IV QAM [facility]IXON Stop: 05/05/19 08:59 Last Admin: 04/06/19 08:44 Dose: 5 mls/min Documented by: Thiamine HCl 200 mg/ Sodium (Chloride) 52 mls @ 208 mls/hr IV BID NIXON Stop: 05/05/19 08:59 Last Infusion: 04/05/19 09:23 Dose: Infused Documented by: Thiamine HCl 500 mg/ Sodium (Chloride) 105 mls @ 210 mls/hr IV TID [facility]IXON Stop: 04/07/19 09:29 Last Infusion: 04/06/19 09:48 Dose: Infused Documented by: Lactulose (Chronulac) 20 gm PO TID [facility] Stop: 05/06/19 13:59 Magnesium Oxide (Mag-Ox) 400 mg PO QAM [facility] Stop: 05/05/19 20:59 Last Admin: 04/06/19 08:44 Dose: 400 mg Documented by: Multivitamins/Minerals (Multivitamin W/ Minerals Tab) 1 tab PO QAM [facility] Stop: 05/05/19 08:59 Last Admin: 04/06/19 08:44 Dose: 1 tab Documented by: Nitrofurantoin Macrocrystals (Macrobid) 100 mg PO BIDM [facility] Stop: 04/11/19 08:01 Ondansetron HCl (Zofran) 4 mg IV Q4H PRN PRN Reason: Nausea Stop: 05/03/19 23:26 Pantoprazole Sodium (Protonix) 40 mg PO QAM [facility] Stop: 05/04/19 09:59 Last Admin: 04/06/19 08:44 Dose: 40 mg Documented by: Potassium Chloride (Klor-Con M20) 20 meq PO TID [facility] Stop: 05/04/19 09:54 Last Admin: 04/06/19 08:44 Dose: 20 meq Documented by: Prednisone (Prelone) 40 mg PO DAILY [facility] Stop: 05/04/19 10:29 Last Admin: 04/06/19 08:44 Dose: 40 mg Documented by: PG Care Time/CCT Total # of Minutes Spent Total Time Spent with Patient: Total time spent is greater than 50% in coordination of care (as documented) at patient's floor/unit and/or counseling patient: Critical Care Time: No Total Critical Care Time: 40 Resident Activity Tracking Resident Involvement: Resident Care Provided Care Provided: Adult Hospital Medicine (ICU: EtOH intoxication) (1) Alcohol withdrawal Complication of substance-induced condition: with unspecified complication Qualified Code(s): F10.239 - Alcohol dependence with withdrawal, unspecified (2) Cirrhosis Hepatic cirrhosis type: alcoholic cirrhosis Ascites presence: unspecified Qualified Code(s): K70.30 - Alcoholic cirrhosis of liver without ascites
--- NOTE | 2019-04-06 09:57 | Gastroenterology Progress Note ---
Date of Service April 06, 2019 Assessment & Plan (1) Cirrhosis: Obtain records from primary GI service at [facility] Continue supportive care Not a transplant candidate at this time due to active alcohol abuse Will need routine screening for HCC and esophageal varices as outpatient, once acute problems resolve. (2) Alcohol withdrawal: Continue current alcohol withdrawal prophylaxis. Encourage her to proceed with alcohol cessation, may need inpatient rehab Continue Prednisolone therapy for 30 days due to elevated DF. Continue supportive care. Supervising Physician Co-Signing Physician Notes Agree with FACUNDO Gage as above Gen: Somnolent, arousable Abd: Soft, NT, ND Continue current therapy and supportive care. Subjective Patient is alert and oriented to person and place. Slightly agitated. DF is at 31.1 and MELD down to 21. She remains tachycardic. Denies any specific GI complaints at present. Plan to transfer out of ICU today per shredded filler machine wrapper layer. Review of Systems Respiratory: no cough and no dyspnea Cardiovascular: no chest pain and no palpitations Gastrointestinal: no abdominal pain, no nausea, no vomiting, no diarrhea/loose stools, no blood in stools and no melena Musculoskeletal: no swelling Neurologic: + tremor(s) Psychiatric: as per Subjective / HPI Physical Exam Constitutional: WD/WN, vitals as above Respiratory: normal respiratory effort and symmetric chest movement Auscultation: lungs clear to auscultation bilaterally Cardiovascular: Rate/Rhythm: regular rate and + tachycardic Gastrointestinal (Abdomen): Inspection/Auscultation: normal bowel sounds Percussion/Palpation: abdomen soft; abdomen nontender Musculoskeletal: no lower extremity edema Skin: ecchymosis noted on bilateral knees and chin Psychiatric: Orientation: oriented to person and oriented to place Eye Contact: good eye contact Affect: + anxious affect Results & Data Vital Signs (Past 12 Hours) Vital Signs Temp Pulse BP Pulse Ox 04/06/19 06:00 36.6 C 97 H 122/78 98 04/06/19 05:00 87 121/79 98 04/06/19 04:00 36.8 C 92 H 119/74 98 04/06/19 03:00 87 123/80 97 04/06/19 02:00 36.4 C L 92 H 107/80 96 04/06/19 01:00 94 H 105/70 96 04/06/19 00:00 36.5 C 90 134/76 94 09/15/19 23:50 88 107/80 97 04/05/19 23:00 94 H 107/80 96 04/05/19 22:00 89 117/83 97 Laboratory Results Abnormal lab results 04/05/19 04/06/19 04/06/19 Range/Units 17:41 04:16 04:16 RBC 2.86 L (4.2-5.4) M/uL Hgb 9.9 L (12.0-16.0) g/dL Hct 28.7 L (37-47) % MCV 100.3 H (80-100) fL MCH 34.6 H (25-34) pg RDW Std Deviation 50.1 H (36.4-46.3) fL Plt Count 44 L (130-400) K/uL Lymph # (Auto) 1.19 L (1.2-3.4) K/uL PT 17.7 H (9.0-12.0) Seconds INR 1.8 H (0.9-1.1) APTT 32.1 H (21.0-31.0) Seconds Chloride (98-107) mmol/L BUN (7-18) mg/dl Creatinine (0.6-1.2) mg/dl POC Glucose 150 H (70-99) Calcium (8.5-10.1) mg/dl Total Bilirubin (0.2-1) mg/dl AST (15-37) U/L Ammonia (11-32) umol/L Albumin (3.4-5.0) gm/dl Globulin (2.5-4.0) gm/dl Albumin/Globulin Ratio (0.9-2) 04/06/19 04/06/19 Range/Units 04:16 04:16 RBC (4.2-5.4) M/uL Hgb (12.0-16.0) g/dL Hct (37-47) % MCV (80-100) fL MCH (25-34) pg RDW Std Deviation (36.4-46.3) fL Plt Count (130-400) K/uL Lymph # (Auto) (1.2-3.4) K/uL PT (9.0-12.0) Seconds INR (0.9-1.1) APTT (21.0-31.0) Seconds Chloride 109 H (98-107) mmol/L BUN 6 L (7-18) mg/dl Creatinine 0.39 L (0.6-1.2) mg/dl POC Glucose (70-99) Calcium 7.2 L (8.5-10.1) mg/dl Total Bilirubin 5.1 H (0.2-1) mg/dl AST 88 H (15-37) U/L Ammonia 44.0 H (11-32) umol/L Albumin 2.7 L (3.4-5.0) gm/dl Globulin 4.7 H (2.5-4.0) gm/dl Albumin/Globulin Ratio 0.6 L (0.9-2) PG Care Time/CCT Total # of Minutes Spent Total Time Spent with Patient: Total time spent is greater than 50% in coordination of care (as documented) at patient's floor/unit and/or counseling patient: (1) Alcohol withdrawal Complication of substance-induced condition: with unspecified complication Qualified Code(s): F10.239 - Alcohol dependence with withdrawal, unspecified (2) Cirrhosis Ascites presence: unspecified Hepatic cirrhosis type: alcoholic cirrhosis Qualified Code(s): K70.30 - Alcoholic cirrhosis of liver without ascites
[2019-04-06] MEDS: LACTULOSE SYRUP 20 GM/30 ML UDC PO SCH ×2 (14:32→20:40)
[2019-04-06] MEDS: NITROFURANTOIN MONOHYDRATE 100 MG CAP PO SCH (18:20)
--- NOTE | 2019-04-06 18:59 | Hospitalist Progress Note ---
Date of Service April 06, 2019 Assessment & Plan (1) Alcohol withdrawal: much improved today transfer out of ICU use Gabapentin protocol and Ativan protocol MVI, thiamine BID, folic acid (2) Fever: could be 2nd to alcohol withdrawal itself. could be 2nd to UTI. continue on Ertapenem for time being, no further fever unclear etiology (3) Acute alcoholic hepatitis: in the setting of advanced cirrhosis. followed by [facility]. discriminant function score is nearly 40 - started prednisolone 40mg daily x 30 days. Day #1 - 04/04/19. INR is 1.8, platelets 44k, no transaminitis treating alcohol withdrawal - see below. appreciate GI consultation and recommendations. MVI, thiamine 200mg IV BID, folic acid. IVF, supportive care. (4) Cirrhosis: advanced, with evidence of portal HTN findings on CT abd/pelvis. follows with [facility]. 2nd to heavy alcohol use chronically (up to 4 bottles/day of wine by report). see above in acute hepatitis. ammonia level up at 44, start on Lactulose today INR high PPI for GI proph in setting of daily steroid use and probable esophageal varices, portal gastropathy, etc (5) Pancytopenia: 2nd to toxic effects of etoh in setting of advanced liver disease. b12,folate,tsh wnl. daily CBC. platelets 44k, Hb 9.9, WBC normal (6) UTI (urinary tract infection): had fever two nights ago continue Ertapenem follow up results urine culture tomorrow (7) Encephalopathy: multifactorial - acute liver failure, UTI, etoh withdrawal, etc. CT head at admission neg for acute process. supportive care treat UTI treat withdrawal follow ammonia levels etc (8) Hypokalemia: replacing PO/IV normal at 3.8 today (9) Rhabdomyolysis: 2nd to recent fall cont IV fluids repeat CPK improved (10) Hypomagnesemia: replaced IV (11) Coagulopathy: 2nd to acute alcoholic hepatitis in setting of advanced cirrhosis discriminant function score is high - starting steroids serial INRs 1.8 today could consider vitamin K supplementation but uncertain it would be helpful (12) Ruptured right breast implant: noted need to examine this area for any signs of superimposed infection, etc she does not have any pain, however if any concerns -- plastics consult yesterday reported that it is chronic and they had seen plastics about the rupture but plastics deferred on Rx due to cirrhosis, platelet issues, etc (13) DVT prophylaxis: SCDs transfer to med/tele today continue withdrawal protocol updated patient's parents at the bedside discussed getting patient through the withdrawal process and improving her nutrition, strength so that she can complete alcohol rehab Subjective patient feeling better this morning, less aggitated, not requiring Phenobarbital discussed with ICU, they are okay with transferring patient to the floor patient is eating well, no abdominal pain or nausea she does not have any tremors, does have mild jaundice discussed her labs, ammonia up to 44, placed on Lactulose CBC with platelets of 44k and Hb 9.9 INR still elevated at 1.8 vitals stable but occasional tachycardia Review of Systems Review of Systems: All systems reviewed & are unremarkable except as noted in HPI & below Constitutional: + fatigue and + weakness; no fever, no chills and no sweats Respiratory: no cough and no dyspnea Cardiovascular: no chest pain and no edema Gastrointestinal: no abdominal pain, no nausea, no vomiting, no constipation and no diarrhea/loose stools Neurologic: + tremor(s) (minimal) Physical Exam Constitutional: WD/WN, vitals as above Eyes: PERRL, conjunctivae normal, anicteric sclerae ENMT: external ear and nose normal, oropharynx normal Neck: trachea midline, no thyromegaly Respiratory: normal respiratory effort, lungs clear to auscultation Cardiovascular: Rate/Rhythm: regular rhythm and + tachycardic Heart Sounds: normal S1 and normal S2; no murmur Vessels: no JVD Extremities: normal capillary refill; no edema Gastrointestinal (Abdomen): normal bowel sounds, soft, nontender, no hepatosplenomegaly Musculoskeletal: no cyanosis or clubbing, extremities motor strength 5/5 Skin: no rashes, warm and dry Neurologic: patellar DTR's 2+ bilat, sensation intact and PERRL, EOMI, accommodation nl, no face palsy, no dysarthria Psychiatric: Orientation: alert and oriented x 3 Affect: + flat affect Lymphatic: no cervical or axillary lymphadenopathy Results & Data Vital Signs (Past 12 Hours) Vital Signs Temp Pulse Pulse Resp BP BP Pulse Ox 04/06/19 16:13 36.3 C L 102 H 17 130/80 95 04/06/19 13:52 103 H 04/06/19 13:40 37.2 C 99 H 16 114/68 93 04/06/19 11:30 115 H 22 04/06/19 11:00 94 H 31 H 117/85 04/06/19 10:30 94 H 26 H 04/06/19 10:00 97 H 24 123/86 04/06/19 09:30 102 H 16 04/06/19 09:04 98 H 26 H 123/79 100 04/06/19 09:00 100 H 96 04/06/19 08:30 47 L 04/06/19 08:00 96 H 99 04/06/19 07:30 88 99 04/06/19 07:00 92 H 123/82 98 Laboratory Results Laboratory Results - last 24 hr 04/06/19 04/06/19 04/06/19 00:22 04:16 04:16 WBC 5.39 RBC 2.86 L Hgb 9.9 L Hct 28.7 L MCV 100.3 H MCH 34.6 H MCHC 34.5 RDW Std Deviation 50.1 H RDW Coeff of Margarette 13.7 Plt Count 44 L MPV 9.9 Immature Gran % (Auto) 0.2 Neut % (Auto) 65.3 Lymph % (Auto) 22.1 Grand % (Auto) 9.1 Eos % (Auto) 2.6 Baso % (Auto) 0.7 Immature Gran # (Auto) 0.01 Neut # (Auto) 3.52 Lymph # (Auto) 1.19 L [place] # (Auto) 0.49 Eos # (Auto) 0.14 Baso # (Auto) 0.04 PT 17.7 H INR 1.8 H APTT 32.1 H PTT Ratio 1.2 Sodium Potassium Chloride Carbon Dioxide Anion Gap BUN Creatinine Est Cr Clr Drug Dosing Est GFR ( Amer) Est GFR (Non-Af Amer) BUN/Creatinine Ratio Glucose POC Glucose 96 Calcium Total Bilirubin AST ALT Alkaline Phosphatase Ammonia Total Protein Albumin Globulin Albumin/Globulin Ratio 04/06/19 04/06/19 04:16 04:16 WBC RBC Hgb Hct MCV MCH MCHC RDW Std Deviation RDW Coeff of Margarette Plt Count MPV Immature Gran % (Auto) Neut % (Auto) Lymph % (Auto) Grand % (Auto) Eos % (Auto) Baso % (Auto) Immature Gran # (Auto) Neut # (Auto) Lymph # (Auto) Grand # (Auto) Eos # (Auto) Baso # (Auto) PT INR APTT PTT Ratio Sodium 138 Potassium 3.8 Chloride 109 H Carbon Dioxide 21 Anion Gap 8.0 BUN 6 L Creatinine 0.39 L Est Cr Clr Drug Dosing 206.4 Est GFR ( Amer) > 150.0 Est GFR (Non-Af Amer) 134.2 BUN/Creatinine Ratio 16.0 Glucose 77 POC Glucose Calcium 7.2 L Total Bilirubin 5.1 H AST 88 H ALT 35 Alkaline Phosphatase 66 Ammonia 44.0 H Total Protein 7.4 Albumin 2.7 L Globulin 4.7 H Albumin/Globulin Ratio 0.6 L Medications Administered Current Inpatient Medications Gabapentin (Neurontin) 600 mg PO Q24H [facility] Stop: 04/07/19 12:01 Lorazepam (Ativan) 1 mg in 2 mls @ 2 mls/min IV UD PRN; Protocol PRN Reason: EtOH Withdrawl AWSS Score 6,7 Stop: 05/03/19 22:47 Lorazepam (Ativan) 2 mg in 4 mls @ 4 mls/min IV UD PRN; Protocol PRN Reason: EtOH Withdrawl AWSS Score 8,9 Stop: 05/03/19 22:47 Last Admin: 04/05/19 06:57 Dose: 4 mls/min Documented by: Lorazepam (Ativan) 3 mg in 6 mls @ 4 mls/min IV ONCE PRN; Protocol PRN Reason: EtOH Withdrawl AWSS Score >=10 Stop: 05/03/19 22:47 Last Admin: 04/05/19 08:52 Dose: 4 mls/min Documented by: Lorazepam (Ativan) 1 mg in 2 mls @ 2 mls/min IV ONE PRN; Protocol PRN Reason: EtoH Withdrawal AWSS 6-10 Stop: 05/03/19 22:47 Folic Acid 1 mg/ Syringe 10 mls @ 5 mls/min IV QAM [facility] Stop: 05/05/19 08:59 Last Admin: 04/06/19 08:44 Dose: 5 mls/min Documented by: Thiamine HCl 200 mg/ Sodium (Chloride) 52 mls @ 208 mls/hr IV BID [facility] Stop: 05/05/19 08:59 Last Infusion: 04/05/19 09:23 Dose: Infused Documented by: Thiamine HCl 500 mg/ Sodium (Chloride) 105 mls @ 210 mls/hr IV TID [facility] Stop: 04/07/19 09:29 Last Infusion: 04/06/19 21:10 Dose: Infused Documented by: Lactulose (Chronulac) 20 gm PO TID [facility] Stop: 05/06/19 13:59 Last Admin: 04/06/19 20:40 Dose: 20 gm Documented by: Magnesium Oxide (Mag-Ox) 400 mg PO QAM [facility] Stop: 05/05/19 20:59 Last Admin: 04/06/19 08:44 Dose: 400 mg Documented by: Multivitamins/Minerals (Multivitamin W/ Minerals Tab) 1 tab PO QAM [facility] Stop: 05/05/19 08:59 Last Admin: 04/06/19 08:44 Dose: 1 tab Documented by: Nitrofurantoin Macrocrystals (Macrobid) 100 mg PO BIDM [facility] Stop: 04/11/19 08:01 Last Admin: 04/06/19 18:20 Dose: 100 mg Documented by: Ondansetron HCl (Zofran) 4 mg IV Q4H PRN PRN Reason: Nausea Stop: 05/03/19 23:26 Pantoprazole Sodium (Protonix) 40 mg PO QAM [facility] Stop: 05/04/19 09:59 Last Admin: 04/06/19 08:44 Dose: 40 mg Documented by: Potassium Chloride (Klor-Con M20) 20 meq PO TID [facility] Stop: 05/04/19 09:54 Last Admin: 04/06/19 14:32 Dose: 20 meq Documented by: Prednisone (Prelone) 40 mg PO DAILY [facility] Stop: 05/04/19 10:29 Last Admin: 04/06/19 08:44 Dose: 40 mg Documented by: PG Care Time/CCT Total # of Minutes Spent Total Time Spent with Patient: Total time spent is greater than 50% in coordination of care (as documented) at patient's floor/unit and/or counseling patient: (1) UTI (urinary tract infection) Hematuria presence: without hematuria Urinary tract infection type: acute cystitis Qualified Code(s): N30.00 - Acute cystitis without hematuria (2) Fever Fever type: unspecified Qualified Code(s): R50.9 - Fever, unspecified (3) Alcohol withdrawal Complication of substance-induced condition: with unspecified complication Qualified Code(s): F10.239 - Alcohol dependence with withdrawal, unspecified (4) Cirrhosis Ascites presence: unspecified Hepatic cirrhosis type: alcoholic cirrhosis Qualified Code(s): K70.30 - Alcoholic cirrhosis of liver without ascites (5) Ruptured right breast implant Encounter type: subsequent encounter Qualified Code(s): T85.43XD - Leakage of breast prosthesis and implant, subsequent encounter (6) Rhabdomyolysis Encounter type: subsequent encounter Rhabdomyolysis type: traumatic Qualified Code(s): T79.6XXD - Traumatic ischemia of muscle, subsequent encounter
[2019-04-06] MEDS ORDERED: PHENobarbital 32.4 MG TAB PO SCH (21:00)
[2019-04-07 06:06] LABS: INR 1.9 (0.9-1.1); Partial Thromboplastin Ratio 1.1; Prothrombin Time 18.4 Seconds (9.0-12.0)
[2019-04-07 06:11] LABS: Hematocrit (blood only) 28.8 % (37-47); Hemoglobin 9.9 g/dL (12.0-16.0); Mean Corpuscular Hemoglobin 34.6 pg (25-34); Mean Corpuscular Hgb Conc 34.4 g/dL (32-36); Mean Corpuscular Volume 100.7 fL (80-100); Mean Platelet Volume 9.4 fL (7.4-10.4); Platelet Count 66 K/uL (130-400); Red Blood Count 2.86 M/uL (4.2-5.4); White Blood Count 6.61 K/uL (4.8-10.8)
[2019-04-07 06:12] LABS: Basophils # (auto) 0.06 K/uL (0-0.2); Basophils % (auto) 0.9 %; Immature Granulocytes # (auto) 0.01 K/uL (0.00-0.02); Immature Granulocytes % (auto) 0.2 %; Lymphocytes % (auto) 22.7 %; Monocytes # (auto) 0.88 K/uL (0.11-0.59); Monocytes % (auto) 13.3 %; Neutrophils # (auto) 3.96 K/uL (1.4-6.5); Neutrophils % (auto) 59.9 %; Platelet Estimate Decreased (Normal)
[2019-04-07 06:16] LABS: Albumin Level 2.9 gm/dl (3.4-5.0); BUN Creatinine Ratio 15.6 (10-20); Calcium 7.9 mg/dl (8.5-10.1); Creatinine Clr Calc Pharmacy 178.9 ml/min; Est GFR (African American) 148.4; Potassium 3.5 mmol/L (3.5-5.1)
[2019-04-07 06:19] LABS: Albumin Globulin Ratio 0.6 (0.9-2); Bilirubin,Total 4.9 mg/dl (0.2-1); Globulin 4.8 gm/dl (2.5-4.0); Total Protein 7.7 gm/dl (6.4-8.2)
[2019-04-07] MEDS: THIAMINE HCL 500 MG in 0.9 % SODIUM CHLORIDE 100 ML IV SCH (07:51)
[2019-04-07] MEDS: FOLIC ACID 1 MG in SYRINGE 9.8 ML IV SCH (07:52)
[2019-04-07] MEDS: LACTULOSE SYRUP 20 GM/30 ML UDC PO SCH ×3 (07:53→20:40)
[2019-04-07] MEDS: CEROVITE ADV FORMULA TAB PO SCH (07:53)
[2019-04-07] MEDS: POTASSIUM CHLORIDE 20 MEQ TABCR PO SCH ×3 (07:54→20:40)
[2019-04-07] MEDS: MAGNESIUM OXIDE 400 MG TAB PO SCH (07:54)
[2019-04-07] MEDS: PANTOprazole 40 MG TAB PO SCH (07:54)
[2019-04-07] MEDS: NITROFURANTOIN MONOHYDRATE 100 MG CAP PO SCH ×2 (07:54→17:21)
[2019-04-07] MEDS: prednisoLONE SYRUP 15 MG/5 ML BTL PO SCH (07:54)
--- NOTE | 2019-04-07 08:32 | Hospitalist Progress Note ---
Date of Service April 07, 2019 Assessment & Plan (1) Alcohol withdrawal: stable today, no signs of severe withdrawal does not meet requirements for Ativan IV use Gabapentin protocol and Ativan protocol MVI, thiamine BID, folic acid (2) Fever: could be 2nd to alcohol withdrawal itself. could be 2nd to UTI. stop Ertapenem as blood and urine cultures show no growth 4 days (3) Acute alcoholic hepatitis: in the setting of advanced cirrhosis. followed by [facility]. discriminant function score is nearly 40 - started prednisolone 40mg daily x 30 days. Day #1 - 04/04/19. INR is 1.9, platelets 66k, no transaminitis treating alcohol withdrawal - see below. appreciate GI consultation and recommendations. MVI, thiamine 200mg IV BID, folic acid. IVF, supportive care. (4) Cirrhosis: advanced, with evidence of portal HTN findings on CT abd/pelvis. follows with [facility]. 2nd to heavy alcohol use chronically (up to 4 bottles/day of wine by report). see above in acute hepatitis. ammonia level up at 44, started on Lactulose yesterday mental status clear repeat Ammonia tomorrow INR high PPI for GI proph in setting of daily steroid use and probable esophageal varices, portal gastropathy, etc (5) Pancytopenia: 2nd to toxic effects of etoh in setting of advanced liver disease. b12,folate,tsh wnl. daily CBC. platelets 66k, Hb 9.9, WBC normal at 6k (6) UTI (urinary tract infection): had fever three nights ago stop Ertapenem, no growth on culture UTI ruled out (7) Encephalopathy: multifactorial - acute liver failure, UTI, etoh withdrawal, etc. CT head at admission neg for acute process. supportive care treat UTI treat withdrawal follow ammonia levels etc (8) Hypokalemia: replacing PO/IV normal at 3.8 today (9) Rhabdomyolysis: 2nd to recent fall cont IV fluids repeat CPK improved (10) Hypomagnesemia: replaced IV (11) Coagulopathy: 2nd to acute alcoholic hepatitis in setting of advanced cirrhosis discriminant function score is high - starting steroids serial INRs 1.9 today could consider vitamin K supplementation but uncertain it would be helpful (12) Ruptured right breast implant: noted need to examine this area for any signs of superimposed infection, etc she does not have any pain, no further fever if any concerns -- plastics consult yesterday reported that it is chronic and they had seen plastics about the rupture but plastics deferred on Rx due to cirrhosis, platelet issues, etc (13) DVT prophylaxis: SCDs, INR is 1.9 continue withdrawal protocol updated patient's parents at the bedside discussed getting patient through the withdrawal process and improving her nutrition, strength so that she can complete alcohol rehab very weak, PT/OT ordered Subjective patient c/o anxiety this morning, requesting Ativan says she has had DEMETRIO her whole life and being in hospital is difficult no chest pain, no dyspnea, no nausea, no fever ate her entire breakfast she is profoundly weak, RN says she is 2 assist PT/OT ordered reviewed labs, INR is 1.9, platelets 66k, Cr and electrolytes stable Review of Systems Review of Systems: All systems reviewed & are unremarkable except as noted in HPI & below Constitutional: + fatigue and + weakness; no fever Respiratory: no cough and no dyspnea Cardiovascular: no chest pain and no edema Gastrointestinal: no abdominal pain, no nausea, no vomiting, no constipation and no diarrhea/loose stools Psychiatric: + anxiety Physical Exam Constitutional: WD/WN, vitals as above Eyes: PERRL, conjunctivae normal, anicteric sclerae ENMT: external ear and nose normal, oropharynx normal Neck: trachea midline, no thyromegaly Respiratory: normal respiratory effort, lungs clear to auscultation Cardiovascular: Rate/Rhythm: regular rhythm and + tachycardic Heart Sounds: normal S1 and normal S2; no murmur Vessels: no JVD Extremities: normal capillary refill; no edema Gastrointestinal (Abdomen): normal bowel sounds, soft, nontender, no hepatosplenomegaly Musculoskeletal: no cyanosis or clubbing, extremities motor strength 5/5 Skin: no rashes, warm and dry Neurologic: patellar DTR's 2+ bilat, sensation intact and PERRL, EOMI, accommodation nl, no face palsy, no dysarthria Psychiatric: Orientation: alert and oriented x 3 Affect: + anxious affect and + tearful affect Lymphatic: no cervical or axillary lymphadenopathy Results & Data Vital Signs (Past 12 Hours) Vital Signs Temp Pulse Pulse Resp BP Pulse Ox 04/07/19 07:37 36.8 C 95 H 20 115/76 96 04/07/19 07:35 94 H 04/07/19 04:00 36.9 C 93 H 19 121/76 95 04/07/19 00:29 88 04/06/19 23:05 37.1 C 96 H 19 114/77 95 Laboratory Results Laboratory Results - last 24 hr 04/07/19 04/07/19 04/07/19 05:29 05:29 05:29 WBC 6.61 RBC 2.86 L Hgb 9.9 L Hct 28.8 L MCV 100.7 H MCH 34.6 H MCHC 34.4 RDW Std Deviation 50.0 H RDW Coeff of Margarette 14.0 Plt Count 66 L MPV 9.4 Immature Gran % (Auto) 0.2 Neut % (Auto) 59.9 Lymph % (Auto) 22.7 [place] % (Auto) 13.3 Eos % (Auto) 3.0 Baso % (Auto) 0.9 Immature Gran # (Auto) 0.01 Neut # (Auto) 3.96 Lymph # (Auto) 1.50 [place] # (Auto) 0.88 H Eos # (Auto) 0.20 Baso # (Auto) 0.06 Platelet Estimate Decreased L PT 18.4 H INR 1.9 H APTT 31.0 PTT Ratio 1.1 Sodium 137 Potassium 3.5 Chloride 106 Carbon Dioxide 21 Anion Gap 10.0 BUN 7 Creatinine 0.45 L Est Cr Clr Drug Dosing 178.9 Est GFR ( Amer) 148.4 Est GFR (Non-Af Amer) 128.0 BUN/Creatinine Ratio 15.6 Glucose 80 Calcium 7.9 L Total Bilirubin 4.9 H AST 79 H ALT 36 Alkaline Phosphatase 67 Total Protein 7.7 Albumin 2.9 L Globulin 4.8 H Albumin/Globulin Ratio 0.6 L Medications Administered Current Inpatient Medications Gabapentin (Neurontin) 600 mg PO Q24H [facility] Stop: 04/07/19 12:01 Lorazepam (Ativan) 1 mg in 2 mls @ 2 mls/min IV UD PRN; Protocol PRN Reason: EtOH Withdrawl AWSS Score 6,7 Stop: 05/03/19 22:47 Lorazepam (Ativan) 2 mg in 4 mls @ 4 mls/min IV UD PRN; Protocol PRN Reason: EtOH Withdrawl AWSS Score 8,9 Stop: 05/03/19 22:47 Last Admin: 04/05/19 06:57 Dose: 4 mls/min Documented by: Lorazepam (Ativan) 3 mg in 6 mls @ 4 mls/min IV ONCE PRN; Protocol PRN Reason: EtOH Withdrawl AWSS Score >=10 Stop: 05/03/19 22:47 Last Admin: 04/05/19 08:52 Dose: 4 mls/min Documented by: Lorazepam (Ativan) 1 mg in 2 mls @ 2 mls/min IV ONE PRN; Protocol PRN Reason: EtoH Withdrawal AWSS 6-10 Stop: 05/03/19 22:47 Folic Acid 1 mg/ Syringe 10 mls @ 5 mls/min IV QAM [facility] Stop: 05/05/19 08:59 Last Admin: 04/07/19 07:52 Dose: 5 mls/min Documented by: Thiamine HCl 200 mg/ Sodium (Chloride) 52 mls @ 208 mls/hr IV BID [facility] Stop: 05/05/19 08:59 Last Infusion: 04/05/19 09:23 Dose: Infused Documented by: Thiamine HCl 500 mg/ Sodium (Chloride) 105 mls @ 210 mls/hr IV TID [facility] Stop: 04/07/19 09:29 Last Infusion: 04/07/19 08:25 Dose: Infused Documented by: Lactulose (Chronulac) 20 gm PO TID [facility] Stop: 05/06/19 13:59 Last Admin: 04/07/19 07:53 Dose: 20 gm Documented by: Lorazepam (Ativan) 1 mg PO Q8 PRN PRN Reason: Anxiety Stop: 05/07/19 08:28 Magnesium Oxide (Mag-Ox) 400 mg PO QAM [facility] Stop: 05/05/19 20:59 Last Admin: 04/07/19 07:54 Dose: 400 mg Documented by: Multivitamins/Minerals (Multivitamin W/ Minerals Tab) 1 tab PO QAM [facility] Stop: 05/05/19 08:59 Last Admin: 04/07/19 07:53 Dose: 1 tab Documented by: Nitrofurantoin Macrocrystals (Macrobid) 100 mg PO BIDM [facility] Stop: 04/11/19 08:01 Last Admin: 04/07/19 07:54 Dose: 100 mg Documented by: Ondansetron HCl (Zofran) 4 mg IV Q4H PRN PRN Reason: Nausea Stop: 05/03/19 23:26 Pantoprazole Sodium (Protonix) 40 mg PO QAM [facility] Stop: 05/04/19 09:59 Last Admin: 04/07/19 07:54 Dose: 40 mg Documented by: Potassium Chloride (Klor-Con M20) 20 meq PO TID [facility] Stop: 05/04/19 09:54 Last Admin: 04/07/19 07:54 Dose: 20 meq Documented by: Prednisone (Prelone) 40 mg PO DAILY [facility] Stop: 05/04/19 10:29 Last Admin: 04/07/19 07:54 Dose: 40 mg Documented by: PG Care Time/CCT Total # of Minutes Spent Total Time Spent with Patient: Total time spent is greater than 50% in coordination of care (as documented) at patient's floor/unit and/or counseling patient: (1) Alcohol withdrawal Complication of substance-induced condition: with unspecified complication Qualified Code(s): F10.239 - Alcohol dependence with withdrawal, unspecified (2) Fever Fever type: unspecified Qualified Code(s): R50.9 - Fever, unspecified (3) Cirrhosis Hepatic cirrhosis type: alcoholic cirrhosis Ascites presence: unspecified Qualified Code(s): K70.30 - Alcoholic cirrhosis of liver without ascites (4) UTI (urinary tract infection) Urinary tract infection type: acute cystitis Hematuria presence: without hematuria Qualified Code(s): N30.00 - Acute cystitis without hematuria (5) Rhabdomyolysis Rhabdomyolysis type: traumatic Encounter type: subsequent encounter Qualified Code(s): T79.6XXD - Traumatic ischemia of muscle, subsequent encounter (6) Ruptured right breast implant Encounter type: subsequent encounter Qualified Code(s): T85.43XD - Leakage of breast prosthesis and implant, subsequent encounter
[2019-04-07] MEDS: LORazepam 1 MG TAB PO PRN (09:17)
--- NOTE | 2019-04-07 10:18 | Gastroenterology Progress Note ---
Date of Service April 07, 2019 Assessment & Plan (1) Cirrhosis: (2) Alcohol withdrawal: (3) Coagulopathy: (4) Encephalopathy: 1. Reinforced importance of alcohol cessation and recommend inpatient rehab upon discharge as ongoing use may preclude eligibility for consideration of a liver transplant. 2. Continue withdrawal protocol. 3. Maddrey's DF 34.3 today. Continue Prednisolone for a total of 30 days. MELD 20 today. 4. Continue Lactulose 20 g TID with goal of ~ 3 bms per day. 5. Continue Pantoprazole 40 mg daily. 6. Agree with PT/OT and nutritional support. 7. Outpatient follow up with [facility] for chronic management. Supervising Physician Co-Signing Physician Notes I personally evaluated the patient and agree with the findings and plan as documented by FACUNDO Gage. Exam: abd: soft, nt, nd, no [facility] Farias MD Gastroenterology Subjective Patient reports she is feeling weak but has been ordered PT/OT and is getting a nutrition consult. Reports she has had resolution of nausea. Tremors have improved. Remains afebrile. Laboratory testing reviewed with pertinent findings: platelets 66, PT 18.4, INR 1.9, sodium 137, potassium 3.5, creatinine 0.45, TB 4.9, AST 79, ALT 36, ALP 67 and ammonia yesterday 44. She has been started on lactulose 20 g TID and states she is having ~3 bms per day. Reports urine is becoming more yellow. Denies any abdominal pain, bloating or lower extremity edema. No overt GIB. +easy bruising. Review of Systems Review of Systems: All systems reviewed & are unremarkable except as noted in HPI & below Physical Exam Constitutional: WD/WN, vitals as above Eyes: EOM intact bilaterally Neck: normal visual inspection Respiratory: normal respiratory effort, lungs clear to auscultation Cardiovascular: RRR, no murmur, no edema Gastrointestinal (Abdomen): Inspection/Auscultation: normal bowel sounds Percussion/Palpation: abdomen soft; abdomen nontender Musculoskeletal: Extremities: no lower leg abnormality Skin: + ecchymosis Neurologic: not confused Psychiatric: A+Ox3, euthymic affect Results & Data Vital Signs (Past 12 Hours) Vital Signs Temp Pulse Pulse Resp BP Pulse Ox 04/07/19 07:37 36.8 C 95 H 20 115/76 96 09/17/19 07:35 94 H 04/07/19 04:00 36.9 C 93 H 19 121/76 95 04/07/19 00:29 88 04/06/19 23:05 37.1 C 96 H 19 114/77 95 Laboratory Results Abnormal lab results 04/07/19 04/07/19 04/07/19 Range/Units 05:29 05:29 05:29 RBC 2.86 L (4.2-5.4) M/uL Hgb 9.9 L (12.0-16.0) g/dL Hct 28.8 L (37-47) % MCV 100.7 H (80-100) fL MCH 34.6 H (25-34) pg RDW Std Deviation 50.0 H (36.4-46.3) fL Plt Count 66 L (130-400) K/uL [place] # (Auto) 0.88 H (0.11-0.59) K/uL Platelet Estimate Decreased L (Normal) PT 18.4 H (9.0-12.0) Seconds INR 1.9 H (0.9-1.1) Creatinine 0.45 L (0.6-1.2) mg/dl Calcium 7.9 L (8.5-10.1) mg/dl Total Bilirubin 4.9 H (0.2-1) mg/dl AST 79 H (15-37) U/L Albumin 2.9 L (3.4-5.0) gm/dl Globulin 4.8 H (2.5-4.0) gm/dl Albumin/Globulin Ratio 0.6 L (0.9-2) PG Care Time/CCT Total # of Minutes Spent Total Time Spent with Patient: Total time spent is greater than 50% in coordination of care (as documented) at patient's floor/unit and/or counseling patient: (1) Alcohol withdrawal Complication of substance-induced condition: with unspecified complication Qualified Code(s): F10.239 - Alcohol dependence with withdrawal, unspecified (2) Cirrhosis Ascites presence: unspecified Hepatic cirrhosis type: alcoholic cirrhosis Qualified Code(s): K70.30 - Alcoholic cirrhosis of liver without ascites
[2019-04-07] MEDS ORDERED: GABAPENTIN 600 MG TAB PO SCH (12:00)
[2019-04-08] MEDS: LORazepam 1 MG TAB PO PRN ×3 (01:18→23:40)
[2019-04-08 06:06] LABS: Hematocrit (blood only) 29.7 % (37-47); Hemoglobin 10.1 g/dL (12.0-16.0); Mean Corpuscular Hemoglobin 34.4 pg (25-34); RDW Coefficient of Variation 14.3 % (11.5-14.5); RDW Standard Deviation 51.7 fL (36.4-46.3); Red Blood Count 2.94 M/uL (4.2-5.4); White Blood Count 7.05 K/uL (4.8-10.8)
[2019-04-08 06:07] LABS: Mean Platelet Volume 9.8 fL (7.4-10.4); Platelet Count 81 K/uL (130-400)
[2019-04-08 06:18] LABS: INR 1.8 (0.9-1.1); Partial Thromboplastin Ratio 1.2; Partial Thromboplastin Time 31.3 Seconds (21.0-31.0); Prothrombin Time 17.9 Seconds (9.0-12.0)
[2019-04-08 06:28] LABS: Basophils # (auto) 0.09 K/uL (0-0.2); Basophils % (auto) 1.3 %; Eosinophils # (auto) 0.25 K/uL (0-0.5); Eosinophils % (auto) 3.5 %; Immature Granulocytes # (auto) 0.01 K/uL (0.00-0.02); Immature Granulocytes % (auto) 0.1 %; Lymphocytes % (auto) 28.4 %; Monocytes # (auto) 1.23 K/uL (0.11-0.59); Monocytes % (auto) 17.4 %; Neutrophils # (auto) 3.47 K/uL (1.4-6.5); Neutrophils % (auto) 49.3 %; Rouleaux 1+
[2019-04-08 06:34] LABS: BUN Creatinine Ratio 15.8 (10-20); Calcium 8.1 mg/dl (8.5-10.1); Creatinine Clr Calc Pharmacy 182.9 ml/min; Est GFR (African American) 149.5; Potassium 3.4 mmol/L (3.5-5.1)
[2019-04-08 06:37] LABS: Albumin Globulin Ratio 0.6 (0.9-2); Bilirubin,Total 4.1 mg/dl (0.2-1)
[2019-04-08] MEDS: prednisoLONE SYRUP 15 MG/5 ML BTL PO SCH (08:56)
[2019-04-08] MEDS: FOLIC ACID 1 MG in SYRINGE 9.8 ML IV SCH (08:56)
[2019-04-08] MEDS: MAGNESIUM OXIDE 400 MG TAB PO SCH (08:56)
[2019-04-08] MEDS: NITROFURANTOIN MONOHYDRATE 100 MG CAP PO SCH ×2 (08:57→17:00)
[2019-04-08] MEDS: POTASSIUM CHLORIDE 20 MEQ TABCR PO SCH ×3 (08:57→20:13)
[2019-04-08] MEDS: CEROVITE ADV FORMULA TAB PO SCH (08:57)
[2019-04-08] MEDS: PANTOprazole 40 MG TAB PO SCH (08:57)
[2019-04-08] MEDS: LACTULOSE SYRUP 20 GM/30 ML UDC PO SCH ×3 (08:58→20:13)
--- NOTE | 2019-04-08 12:52 | Hospitalist Progress Note ---
Date of Service April 08, 2019 Assessment & Plan (1) Alcohol withdrawal: stable today, no signs of severe withdrawal does not meet requirements for Ativan IV use Gabapentin protocol and Ativan protocol MVI, thiamine BID, folic acid appears to be through the withdrawal phase (2) Fever: could be 2nd to alcohol withdrawal itself. could be 2nd to UTI. stopped Ertapenem, no further fever for 5 days (3) Acute alcoholic hepatitis: in the setting of advanced cirrhosis. followed by [facility]. discriminant function score is nearly 40 - started prednisolone 40mg daily x 30 days. Day #1 - 04/04/19. INR is 1.8, platelets 81k, no transaminitis treating alcohol withdrawal - see below. appreciate GI consultation and recommendations. MVI, thiamine 200mg IV BID, folic acid. IVF, supportive care. (4) Cirrhosis: advanced, with evidence of portal HTN findings on CT abd/pelvis. follows with [facility]. 2nd to heavy alcohol use chronically (up to 4 bottles/day of wine by report). see above in acute hepatitis. ammonia level up at 44, started on Lactulose two days ago mental status clear repeat Ammonia tomorrow INR high PPI for GI proph in setting of daily steroid use and probable esophageal varices, portal gastropathy, etc (5) Pancytopenia: 2nd to toxic effects of etoh in setting of advanced liver disease. b12,folate,tsh wnl. daily CBC. platelets 81k, Hb 10.1, WBC normal (6) Encephalopathy: multifactorial - acute liver failure, UTI, etoh withdrawal, etc. CT head at admission neg for acute process. supportive care treat UTI treat withdrawal follow ammonia levels mental status at baseline (7) Hypokalemia: 3.4 today, replace PO (8) Rhabdomyolysis: resolved with fluids (9) Hypomagnesemia: replaced IV (10) Coagulopathy: 2nd to acute alcoholic hepatitis in setting of advanced cirrhosis discriminant function score is high - starting steroids serial INRs 1.8 today could consider vitamin K supplementation but uncertain it would be helpful (11) Ruptured right breast implant: noted need to examine this area for any signs of superimposed infection, etc she does not have any pain, no further fever if any concerns -- plastics consult yesterday reported that it is chronic and they had seen plastics about t he rupture but plastics deferred on Rx due to cirrhosis, platelet issues, etc (12) DVT prophylaxis: SCDs, INR is 1.8 continue withdrawal protocol updated patient's parents at the bedside discussed getting patient through the withdrawal process and improving her nutrition, strength so that she can complete alcohol rehab very weak, PT/OT ordered, patient is up for going to physical rehab if needed to get stronger Subjective patient doing well today, no major issues had a minor fall last night, bumped back of her head on wall, no injury she is in better spirits today, no tremors, no anxiety reviewed labs, Bili down to 4.1, platelets up to 81k, INR 1.8 still updated family at the bedside we discussed possibility of going to physical rehab prior to drug/alcohol rehab she is in agreement family prefers [facility] in [place] Review of Systems Review of Systems: All systems reviewed & are unremarkable except as noted in HPI & below Constitutional: + fatigue and + weakness; no fever Respiratory: no cough and no dyspnea Cardiovascular: no chest pain, no palpitations and no edema Gastrointestinal: no abdominal pain, no nausea, no vomiting, no constipation and no diarrhea/loose stools Musculoskeletal: + muscle weakness (generalized) Physical Exam Constitutional: WD/WN, vitals as above Eyes: PERRL, conjunctivae normal, anicteric sclerae ENMT: external ear and nose normal, oropharynx normal Neck: trachea midline, no thyromegaly Respiratory: normal respiratory effort, lungs clear to auscultation Cardiovascular: Rate/Rhythm: regular rate and regular rhythm Heart Sounds: normal S1 and normal S2; no murmur Vessels: no JVD Extremities: normal capillary refill; no edema Gastrointestinal (Abdomen): normal bowel sounds, soft, nontender, no hepatos plenomegaly Musculoskeletal: no cyanosis or clubbing, extremities motor strength 5/5 Skin: no rashes, warm and dry Neurologic: patellar DTR's 2+ bilat, sensation intact and PERRL, EOMI, accommodation nl, no face palsy, no dysarthria Psychiatric: Orientation: alert and oriented x 3 Lymphatic: no cervical or axillary lymphadenopathy Results & Data Vital Signs (Past 12 Hours) Vital Signs Temp Pulse Pulse Resp BP Pulse Ox 04/08/19 11:41 37.6 C H 92 H 17 116/75 95 04/08/19 07:21 36.7 C 101 H 17 121/76 97 04/08/19 07:17 108 H 04/08/19 04:00 36.9 C 132 H 18 126/82 95 Laboratory Results Laboratory Results - last 24 hr 04/08/19 04/08/19 04/08/19 05:39 05:39 05:39 WBC 7.05 RBC 2.94 L Hgb 10.1 L Hct 29.7 L MCV 101.0 H MCH 34.4 H MCHC 34.0 RDW Std Deviation 51.7 H RDW Coeff of Margarette 14.3 Plt Count 81 L MPV 9.8 Immature Gran % (Auto) 0.1 Neut % (Auto) 49.3 Lymph % (Auto) 28.4 Banner % (Auto) 17.4 Eos % (Auto) 3.5 Baso % (Auto) 1.3 Immature Gran # (Auto) 0.01 Neut # (Auto) 3.47 Lymph # (Auto) 2.00 Banner # (Auto) 1.23 H Eos # (Auto) 0.25 Baso # (Auto) 0.09 Rouleaux 1+ PT 17.9 H INR 1.8 H APTT 31.3 H PTT Ratio 1.2 Sodium 136 Potassium 3.4 L Chloride 106 Carbon Dioxide 21 Anion Gap 9.0 BUN 7 Creatinine 0.44 L Est Cr Clr Drug Dosing 182.9 Est GFR ( Amer) 149.5 Est GFR (Non-Af Amer) 129.0 BUN/Creatinine Ratio 15.8 Glucose 85 Calcium 8.1 L Total Bilirubin 4.1 H AST 79 H ALT 41 Alkaline Phosphatase 69 Total Protein 8.0 Albumin 3.0 L Globulin 5.0 H Albumin/Globulin Ratio 0.6 L Medications Administered Current Inpatient Medications Lorazepam (Ativan) 1 mg in 2 mls @ 2 mls/min IV UD PRN; Protocol PRN Reason: EtOH Withdrawl AWSS Score 6,7 Stop: 05/03/19 22:47 Lorazepam (Ativan) 2 mg in 4 mls @ 4 mls/min IV UD PRN; Protocol PRN Reason: EtOH Withdrawl AWSS Score 8,9 Stop: 05/03/19 22:47 Last Admin: 04/05/19 06:57 Dose: 4 mls/min Documented by: Lorazepam (Ativan) 3 mg in 6 mls @ 4 mls/min IV ONCE PRN; Protocol PRN Reason: EtOH Withdrawl AWSS Score >=10 Stop: 05/03/19 22:47 Last Admin: 04/05/19 08:52 Dose: 4 mls/min Documented by: Lorazepam (Ativan) 1 mg in 2 mls @ 2 mls/min IV ONE PRN; Protocol PRN Reason: EtoH Withdrawal AWSS 6-10 Stop: 05/03/19 22:47 Folic Acid 1 mg/ Syringe 10 mls @ 5 mls/min IV QAM [facility] Stop: 05/05/19 08:59 Last Admin: 04/08/19 08:56 Dose: 5 mls/min Documented by: Thiamine HCl 200 mg/ Sodium (Chloride) 52 mls @ 208 mls/hr IV BID [facility] Stop: 05/05/19 08:59 Last Infusion: 04/05/19 09:23 Dose: Infused Documented by: Lactulose (Chronulac) 20 gm PO TID [facility] Stop: 05/06/19 13:59 Last Admin: 04/08/19 08:58 Dose: 20 gm Documented by: Lorazepam (Ativan) 1 mg PO Q8 PRN PRN Reason: Anxiety Stop: 05/07/19 08:28 Last Admin: 04/08/19 01:18 Dose: 1 mg Documented by: Magnesium Oxide (Mag-Ox) 400 mg PO [facility] Stop: 05/05/19 20:59 Last Admin: 04/08/19 08:56 Dose: 400 mg Documented by: Multivitamins/Minerals (Multivitamin W/ Minerals Tab) 1 tab PO [facility] Stop: 05/05/19 08:59 Last Admin: 04/08/19 08:57 Dose: 1 tab Documented by: Nitrofurantoin Macrocrystals (Macrobid) 100 mg PO BIDM [facility] Stop: 04/11/19 08:01 Last Admin: 04/08/19 08:57 Dose: 100 mg Documented by: Ondansetron HCl (Zofran) 4 mg IV Q4H PRN PRN Reason: Nausea Stop: 05/03/19 23:26 Pantoprazole S[facility]ix) [facility]: 05/04/19 09:59 Last Admin: 04/08/19 08:57 Dose: 40 mg Documented by: Potassium Chloride (Klor-Con M20) 20 meq PO TID [facility] Stop: 05/04/19 09:54 Last Admin: 04/08/19 08:57 Dose: 20 meq Documented by: Prednisone (Prelone) 40 mg PO DAILY [facility] Stop: 05/04/19 10:29 Last Admin: 04/08/19 08:56 Dose: 40 mg Documented by: PG Care Time/CCT Total # of Minutes Spent Total Time Spent with Patient: Total time spent is greater than 50% in coordination of care (as documented) at patient's floor/unit and/or counseling patient: (1) Alcohol withdrawal Complication of substance-induced condition: with unspecified complication Qualified Code(s): F10.239 - Alcohol dependence with withdrawal, unspecified (2) Fever Fever type: unspecified Qualified Code(s): R50.9 - Fever, unspecified (3) Cirrhosis Hepatic cirrhosis type: alcoholic cirrhosis Ascites presence: unspecified Qualified Code(s): K70.30 - Alcoholic cirrhosis of liver without ascites (4) Rhabdomyolysis Rhabdomyolysis type: traumatic Encounter type: subsequent encounter Qualified Code(s): T79.6XXD - Traumatic ischemia of muscle, subsequent encounter (5) Ruptured right breast implant Encounter type: subsequent encounter Qualified Code(s): T85.43XD - Leakage of breast prosthesis and implant, subsequent encounter
[2019-04-09] MEDS: FOLIC ACID 1 MG in SYRINGE 9.8 ML IV SCH (07:56)
[2019-04-09] MEDS: LORazepam 1 MG TAB PO PRN (07:56)
[2019-04-09] MEDS: POTASSIUM CHLORIDE 20 MEQ TABCR PO SCH ×3 (07:59→20:37)
[2019-04-09] MEDS: LACTULOSE SYRUP 20 GM/30 ML UDC PO SCH ×2 (07:59→20:37)
[2019-04-09] MEDS: NITROFURANTOIN MONOHYDRATE 100 MG CAP PO SCH ×2 (08:00→16:13)
[2019-04-09] MEDS: CEROVITE ADV FORMULA TAB PO SCH (08:00)
[2019-04-09] MEDS: PANTOprazole 40 MG TAB PO SCH (08:00)
[2019-04-09] MEDS: prednisoLONE SYRUP 15 MG/5 ML BTL PO SCH (08:00)
[2019-04-09] MEDS: MAGNESIUM OXIDE 400 MG TAB PO SCH (08:00)
[2019-04-09 08:06] LABS: Hemoglobin 10.9 g/dL (12.0-16.0); Mean Corpuscular Hemoglobin 34.4 pg (25-34); Mean Corpuscular Hgb Conc 34.1 g/dL (32-36); Mean Corpuscular Volume 100.9 fL (80-100); Mean Platelet Volume 9.5 fL (7.4-10.4); Platelet Count 104 K/uL (130-400); RDW Coefficient of Variation 14.3 % (11.5-14.5); RDW Standard Deviation 52.4 fL (36.4-46.3); Red Blood Count 3.17 M/uL (4.2-5.4); White Blood Count 7.18 K/uL (4.8-10.8)
[2019-04-09 08:36] LABS: Albumin Level 3.2 gm/dl (3.4-5.0); BUN Creatinine Ratio 10.5 (10-20); Calcium 8.8 mg/dl (8.5-10.1); Creatinine Clr Calc Pharmacy 164.3 ml/min; Est GFR (African American) 144.3; Est GFR (Non-African American) 124.5; Potassium 3.3 mmol/L (3.5-5.1)
[2019-04-09 08:45] LABS: Albumin Globulin Ratio 0.6 (0.9-2); Globulin 5.1 gm/dl (2.5-4.0); Total Protein 8.3 gm/dl (6.4-8.2)
--- NOTE | 2019-04-09 10:47 | Gastroenterology Progress Note ---
Date of Service April 09, 2019 Assessment & Plan (1) Cirrhosis: (2) Alcohol withdrawal: (3) Coagulopathy: (4) Encephalopathy: 1. Await evaluation by psych today due to reported visual/auditory hallucinations. 2. Continue withdrawal protocol. 3. Check a PT/INR today. 4. Decrease Lactulose 20 g to BID due to bowel frequency as goal of ~ 3 bms per day. 5. Continue Pantoprazole 40 mg daily. 6. Agree with PT/OT and nutritional support. 7. Plan for inpatient rehab upon discharge. Supervising Physician Co-Signing Physician Notes I personally evaluated the patient and agree with the findings and plan as documented by FACUNDO Gage Exam: abd: soft, nt, nd, no hsm Subjective Patient reports having both auditory and visual hallucinations last night and reports she has not been sleeping. Denies any abdominal pain, nausea or vomiting, palpitations, chest pain, shortness of breath, fevers or tremors. Reports having 6 bms daily. Tolerating diet. Laboratory testing reviewed. No coag panel drawn today. Review of Systems Review of Systems: All systems reviewed & are unremarkable except as noted in HPI & below Physical Exam Constitutional: + in distress Eyes: EOM intact bilaterally Neck: normal visual inspection Respiratory: normal respiratory effort, lungs clear to auscultation Cardiovascular: Rate/Rhythm: regular rate and regular rhythm Gastrointestinal (Abdomen): Inspection/Auscultation: normal bowel sounds Percussion/Palpation: abdomen soft; abdomen nontender and no fluid wave Musculoskeletal: no lower extremity edema. Skin: + ecchymosis Neurologic: moves all extremities Psychiatric: A+Ox3, euthymic affect Results & Data Vital Signs (Past 12 Hours) Vital Signs Temp Pulse Pulse Resp BP Pulse Ox 04/09/19 07:17 93 H 04/09/19 00:37 85 04/08/19 23:07 36.7 C 99 H 20 138/85 98 Laboratory Results Abnormal lab results 04/09/19 04/09/19 Range/Units 07:50 07:50 RBC 3.17 L (4.2-5.4) M/uL Hgb 10.9 L (12.0-16.0) g/dL Hct 32.0 L (37-47) % MCV 100.9 H (80-100) fL MCH 34.4 H (25-34) pg RDW Std Deviation 52.4 H (36.4-46.3) fL Plt Count 104 L (130-400) K/uL Potassium 3.3 L (3.5-5.1) mmol/L Carbon Dioxide 19 L (21-32) mmol/L BUN 5 L (7-18) mg/dl Creatinine 0.49 L (0.6-1.2) mg/dl Total Bilirubin 5.0 H (0.2-1) mg/dl AST 85 H (15-37) U/L Total Protein 8.3 H (6.4-8.2) gm/dl Albumin 3.2 L (3.4-5.0) gm/dl Globulin 5.1 H (2.5-4.0) gm/dl Albumin/Globulin Ratio 0.6 L (0.9-2) PG Care Time/CCT Total # of Minutes Spent Total Time Spent with Patient: Total time spent is greater than 50% in coordination of care (as documented) at patient's floor/unit and/or counseling patient: (1) Alcohol withdrawal Complication of substance-induced condition: with unspecified complication Qualified Code(s): F10.239 - Alcohol dependence with withdrawal, unspecified (2) Cirrhosis Ascites presence: unspecified Hepatic cirrhosis type: alcoholic cirrhosis Qualified Code(s): K70.30 - Alcoholic cirrhosis of liver without ascites
[2019-04-09 11:20] LABS: INR 1.9 (0.9-1.1); Prothrombin Time 18.2 Seconds (9.0-12.0)
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
[2019-04-09] MEDS ORDERED: LORazepam 1 MG TAB PO PRN (13:24)
--- NOTE | 2019-04-09 13:28 | Hospitalist Progress Note ---
Date of Service April 09, 2019 Assessment & Plan (1) Alcohol withdrawal: stable today, no signs of severe withdrawal does not meet requirements for Ativan IV, will discontinue the order for Ativan IV completed Gabapentin protol Ativan PO was ordered PRN, will cut back to 0.5mg q12 with plans to stop MVI, thiamine BID, folic acid appears to be through the withdrawal phase (2) Acute alcoholic hepatitis: in the setting of advanced cirrhosis. followed by [facility]. discriminant function score nearly 40 on admission - started prednisolone 40mg daily x 30 days. Day #1 - 04/04/19. INR is 1.9, platelets 104k, no transaminitis, bilirubin remains high at 5.0 completed alcohol withdrawal appreciate GI consultation and recommendations. MVI, thiamine 200mg IV BID, folic acid. IVF, supportive care. (3) Cirrhosis: advanced, with evidence of portal HTN findings on CT abd/pelvis. follows with [facility]. 2nd to heavy alcohol use chronically (up to 4 bottles/day of wine by report). see above in acute hepatitis. ammonia level up at 44, started on Lactulose, will decrease dose to 20mg BID mental status clear INR high PPI for GI proph in setting of daily steroid use and probable esophageal varices, portal gastropathy, etc (4) Pancytopenia: 2nd to toxic effects of etoh in setting of advanced liver disease. b12,folate,tsh wnl. daily CBC. platelets 104k, Hb 10.9, WBC normal (5) Encephalopathy: multifactorial - acute liver failure, UTI, etoh withdrawal, etc. CT head at admission neg for acute process. supportive care treat UTI treat withdrawal follow ammonia levels mental status at baseline although she gets anxious, had some hallucinations last night (6) Hypokalemia: 3.3 today, she is getting 20 TID (7) Rhabdomyolysis: resolved with fluids (8) Hypomagnesemia: replaced IV (9) Coagulopathy: 2nd to acute alcoholic hepatitis in setting of advanced cirrhosis discriminant function score is high - starting steroids serial INRs 1.9 today could consider vitamin K supplementation but uncertain it would be helpful (10) Ruptured right breast implant: noted need to examine this area for any signs of superimposed infection, etc she does not have any pain, no further fever if any concerns -- plastics consult yesterday reported that it is chronic and they had seen plastics about the rupture but plastics deferred on Rx due to cirrhosis, platelet issues, etc (11) Weakness: PT and OT evaluations patient is weaker than baseline, at risk for falling, impulsive at times, poor balance feel that she would benefit from physical rehab (12) DVT prophylaxis: SCDs, INR is 1.9 updated patient's parents at the bedside discussed getting patient through the withdrawal process and improving her nutrition, strength so that she can complete alcohol rehab medically would be ready in 1-2 days Subjective patient tearful this morning, anxious, had some hallucinations last night psychiatry to see today reviewed PT/OT notes, she is impulsive, poor judgement, needs to use rolling walker currently not strong enough to be fully independent and likely needs acute rehab reviewed labs, Bili is 5.0, INR 1.9, platelets up to 104k Cr and electrolytes stable she is eating, no issues with breathing or pain mother at the bedside, updated her Review of Systems Review of Systems: All systems reviewed & are unremarkable except as noted in HPI & below Constitutional: + fatigue and + weakness; no fever Musculoskeletal: + muscle weakness (generalized) Neurologic: + tremor(s) (minimal) Psychiatric: + anxiety Physical Exam Constitutional: WD/WN, vitals as above Eyes: PERRL, conjunctivae normal, anicteric sclerae ENMT: external ear and nose normal, oropharynx normal Neck: trachea midline, no thyromegaly Respiratory: normal respiratory effort, lungs clear to auscultation Cardiovascular: Rate/Rhythm: regular rate and regular rhythm Heart Sounds: normal S1 and normal S2; no murmur Vessels: no JVD Extremities: normal capillary refill; no edema Gastrointestinal (Abdomen): normal bowel sounds, soft, nontender, no hepatosplenomegaly Musculoskeletal: no cyanosis or clubbing, extremities motor strength 5/5 Skin: no rashes, warm and dry Neurologic: patellar DTR's 2+ bilat, sensation intact and PERRL, EOMI, accommodation nl, no face palsy, no dysarthria Psychiatric: Orientation: alert and oriented x 3 Affect: + anxious affect and + tearful affect Lymphatic: no cervical or axillary lymphadenopathy Results & Data Vital Signs (Past 12 Hours) Vital Signs Temp Pulse Pulse Resp BP Pulse Ox 04/09/19 12:33 36.7 C 104 H 17 123/75 97 04/09/19 07:17 93 H Laboratory Results Laboratory Results - last 24 hr 04/09/19 04/09/19 04/09/19 07:50 07:50 10:46 WBC 7.18 RBC 3.17 L Hgb 10.9 L Hct 32.0 L MCV 100.9 H MCH 34.4 H MCHC 34.1 RDW Std Deviation 52.4 H RDW Coeff of Margarette 14.3 Plt Count 104 L MPV 9.5 PT 18.2 H INR 1.9 H Sodium 136 Potassium 3.3 L Chloride 106 Carbon Dioxide 19 L Anion Gap 11.0 BUN 5 L Creatinine 0.49 L Est Cr Clr Drug Dosing 164.3 Est GFR ( Amer) 144.3 Est GFR (Non-Af Amer) 124.5 BUN/Creatinine Ratio 10.5 Glucose 87 Calcium 8.8 Total Bilirubin 5.0 H AST 85 H ALT 51 Alkaline Phosphatase 71 Total Protein 8.3 H Albumin 3.2 L Globulin 5.1 H Albumin/Globulin Ratio 0.6 L Medications Administered Current Inpatient Medications Folic Acid 1 mg/ Syringe 10 mls @ 5 mls/min IV QAOK [facility] [place] Stop: 05/05/19 08:59 Last Admin: 04/09/19 07:56 Dose: 5 mls/min Documented by: Thiamine HCl 200 mg/ Sodium (Chloride) 52 mls @ 208 mls/hr IV BID [facility] Stop: 05/05/19 08:59 Last Infusion: 04/05/19 09:23 Dose: Infused Documented by: Lactulose (Chronulac) 20 gm PO BID [facility] Stop: 05/09/19 20:59 Lorazepam (Ativan) 0.5 mg PO Q12 PRN PRN Reason: Anxiety Stop: 05/07/19 08:28 Magnesium Oxide (Mag-Ox) 400 mg PO QAOK [facility] [place] Stop: 05/05/19 20:59 Last Admin: 04/09/19 08:00 Dose: 400 mg Documented by: Multivitamins/Minerals (Multivitamin W/ Minerals Tab) 1 tab PO QAOK [facility] [place] Stop: 05/05/19 08:59 Last Admin: 04/09/19 08:00 Dose: 1 tab Documented by: Nitrofurantoin Macrocrystals (Macrobid) 100 mg PO BIDM [facility] Stop: 04/11/19 08:01 Last Admin: 04/09/19 08:00 Dose: 100 mg Documented by: Ondansetron HCl (Zofran) 4 mg IV Q4H PRN PRN Reason: Nausea Stop: 05/03/19 23:26 Pantoprazole Sodium (Protonix) 40 mg PO QAM [facility] Stop: 05/04/19 09:59 Last Admin: 04/09/19 08:00 Dose: 40 mg Documented by: Potassium Chloride (Klor-Con M20) 20 meq PO TID [facility] Stop: 05/04/19 09:54 Last Admin: 04/09/19 07:59 Dose: 20 meq Documented by: Prednisone (Prelone) 40 mg PO DAILY [facility] Stop: 05/04/19 10:29 Last Admin: 04/09/19 08:00 Dose: 40 mg Documented by: PG Care Time/CCT Total # of Minutes Spent Total Time Spent with Patient: Total time spent is greater than 50% in material coordinator rdination of care (as documented) at patient's floor/unit and/or counseling patient: (1) Alcohol withdrawal Complication of substance-induced condition: with unspecified complication Qualified Code(s): F10.239 - Alcohol dependence with withdrawal, unspecified (2) Cirrhosis Hepatic cirrhosis type: alcoholic cirrhosis Ascites presence: unspecified Qualified Code(s): K70.30 - Alcoholic cirrhosis of liver without ascites (3) Rhabdomyolysis Rhabdomyolysis type: traumatic Encounter type: subsequent encounter Qualified Code(s): T79.6XXD - Traumatic ischemia of muscle, subsequent encounter (4) Ruptured right breast implant Encounter type: subsequent encounter Qualified Code(s): T85.43XD - Leakage of breast prosthesis and implant, subsequent encounter
[2019-04-10 06:09] LABS: Hematocrit (blood only) 31.2 % (37-47); Hemoglobin 10.6 g/dL (12.0-16.0); Mean Corpuscular Hemoglobin 34.5 pg (25-34); Mean Corpuscular Volume 101.6 fL (80-100); Mean Platelet Volume 9.7 fL (7.4-10.4); Platelet Count 109 K/uL (130-400); RDW Coefficient of Variation 14.3 % (11.5-14.5); RDW Standard Deviation 53.5 fL (36.4-46.3); Red Blood Count 3.07 M/uL (4.2-5.4); White Blood Count 6.77 K/uL (4.8-10.8)
[2019-04-10 06:48] LABS: BUN Creatinine Ratio 16.4 (10-20); Calcium 8.1 mg/dl (8.5-10.1); Est GFR (African American) 143.3; Est GFR (Non-African American) 123.6; Potassium 3.5 mmol/L (3.5-5.1)
[2019-04-10 07:01] LABS: Albumin Globulin Ratio 0.6 (0.9-2); Bilirubin,Total 3.8 mg/dl (0.2-1); Globulin 5.2 gm/dl (2.5-4.0); Total Protein 8.2 gm/dl (6.4-8.2)
[2019-04-10 07:19] LABS: Amphetamines+Metham, Urine Neg (Neg); Barbiturates, Urine Pos (Neg); Benzodiazepine, Urine Pos (Neg); Cocaine, Urine Neg (Neg); MDMA (Ecstacy), Urine Neg (Neg); Methadone, Urine Neg (Neg); Opiate, Urine Neg (Neg); Phencyclidine, Urine Neg (Neg)
[2019-04-10] MEDS: prednisoLONE SYRUP 15 MG/5 ML BTL PO SCH (08:21)
[2019-04-10] MEDS: LACTULOSE SYRUP 20 GM/30 ML UDC PO SCH (08:21)
[2019-04-10] MEDS: NITROFURANTOIN MONOHYDRATE 100 MG CAP PO SCH (08:21)
[2019-04-10] MEDS: CEROVITE ADV FORMULA TAB PO SCH (08:22)
[2019-04-10] MEDS: FOLIC ACID 1 MG in SYRINGE 9.8 ML IV SCH (08:22)
[2019-04-10] MEDS: PANTOprazole 40 MG TAB PO SCH (08:22)
[2019-04-10] MEDS: POTASSIUM CHLORIDE 20 MEQ TABCR PO SCH (08:22)
[2019-04-10] MEDS: MAGNESIUM OXIDE 400 MG TAB PO SCH (08:23)
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
[2019-04-13 15:15] LABS: 7-Aminoclonaz, Confirm NEGATIVE NG/ML (CUTOFF=25); Amobarbital, Urine Conf NEGATIVE NG/ML (CUTOFF=100); Butalbital, Urine NEGATIVE NG/ML (CUTOFF=100); Hydro-Alp Ur, GC/MS NEGATIVE NG/ML (CUTOFF=25); Hydroxyethylflurazepam, Conf NEGATIVE NG/ML (CUTOFF=50); Hydroxytriazolam NEGATIVE NG/ML (CUTOFF=50); Lorazepam, Ur GC/MS >2000 NG/ML (CUTOFF=50); Nordiazepam, Confirm 76 NG/ML (CUTOFF=50); Oxazepam Ur, GC/MS 155 NG/ML (CUTOFF=50); Pentobarbital, Urine Conf NEGATIVE NG/ML (CUTOFF=100); Phenobarbital, Urine >8000 NG/ML (CUTOFF=100); Secobarbital, Urine Conf NEGATIVE NG/ML (CUTOFF=100); Temazepam, Confirm 412 NG/ML (CUTOFF=50)
== END 2019-04-10 16:29 | disposition alcohol treatment (31) | DRG 896 ==
LOC: ED 15:03 → 2S 21:09 → SUATTDRO 21:09 → 2S 21:56 → 1E 04-05 08:24 → 2N 04-06 12:36
DX: F10.26 Alcohol dependence with alcohol-induced persisting amnestic disorder; Y92.018 Other place in single-family (private) house as the place of occurrence of the external cause; I85.10 Secondary esophageal varices without bleeding; F13.10 Sedative, hypnotic or anxiolytic abuse, uncomplicated; D25.9 Leiomyoma of uterus, unspecified; Z88.1 Allergy status to other antibiotic agents; K76.6 Portal hypertension; Y99.8 Other external cause status; D61.811 Other drug-induced pancytopenia; Z88.0 Allergy status to penicillin; G93.49 Other encephalopathy; K70.10 Alcoholic hepatitis without ascites; S40.022A Contusion of left upper arm, initial encounter; E83.42 Hypomagnesemia; F41.9 Anxiety disorder, unspecified; D68.4 Acquired coagulation factor deficiency; Y83.4 Other reconstructive surgery as the cause of abnormal reaction of the patient, or of later complication, without mention of misadventure at the time of the procedure; S00.83XA Contusion of other part of head, initial encounter; Y92.199 Unspecified place in other specified residential institution as the place of occurrence of the external cause; E87.6 Hypokalemia; G92 Toxic encephalopathy; K70.30 Alcoholic cirrhosis of liver without ascites; T85.49XA Other mechanical complication of breast prosthesis and implant, initial encounter; I45.81 Long QT syndrome; F17.210 Nicotine dependence, cigarettes, uncomplicated; F10.231 Alcohol dependence with withdrawal delirium; N39.0 Urinary tract infection, site not specified; S22.32XA Fracture of one rib, left side, initial encounter for closed fracture; W19.XXXA Unspecified fall, initial encounter; F32.9 Major depressive disorder, single episode, unspecified; F10.232 Alcohol dependence with withdrawal with perceptual disturbance; W10.9XXA Fall (on) (from) unspecified stairs and steps, initial encounter; T79.6XXA Traumatic ischemia of muscle, initial encounter; S40.021A Contusion of right upper arm, initial encounter